=== PATIENT | female | born 1975 | race Caucasian/White ===

== ENCOUNTER → 2019-05-22 14:03 | Outpatient (BNVA) | payer OTHER, SELFPAY | PROVIDERS: Family Provider Nurse Practitioner; PCP Nurse Practitioner; Visit Provider Psychiatry & Neurology Neurology | DX: M79.601 Pain in right arm (principal); M79.602 Pain in left arm; M54.2 Cervicalgia | CPT/HCPCS: 95886; 95912 ==

== ENCOUNTER 2019-05-31 13:02 | Outpatient (CLI) | payer OTHER, SELFPAY ==
--- NOTE | 2019-05-31 13:06 | MR_ITS ---
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 Minimal LEFT convex curvature of the cervical spine. Posterior alignment is normal. Mild disc space narrowing and desiccation at C6-7 and C7-T1. Signal within the cord is normal. Craniocervical junction, C1 and C2 relationship, odontoid process and soft tissues are normal. C2-C3: Normal. C3-C4: Normal. C4-C5: Normal. C5-C6: Shallow central disc protrusion. Small osteophytes. No significant stenosis. CSF still surroun ds the cord. Less contact on the cord as compared to the prior CT from 04/08/2018. C6-C7: Annular disc bulging with facet and osteophyte disease. Shallow central protrusion is also pre sent. Effacement of ventral CSF very minimal encroachment upon the epidural space. Mild central and b ilateral foraminal stenosis. C7-T1: Normal. Paraspinal soft tissue are normal. MR/MR cervical spin wo con* [id number] IMPRESSION: 1. Moderate annular disc bulging and osteophytosis with central protrusion at C6-7. Resulting in mild central and bilateral foraminal stenosis. Similar to th e prior study. 2. Mild spondylosis at C5-6. Encroachment upon the ventral cord has slightly i mproved compared to 04/08/2018.
--- NOTE | 2019-05-31 13:07 | XR_ITS ---
WS: [id number] LATERAL CERVICAL SPINE: 3 view. Lateral radiographs are performed in upright neutral, flexion and extension to the patient's toleranc e. 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 Mild disc space narrowing at C6-7. Small to moderate o steophytes at C5, C6 and C7. No fracture. Less than 2 mm retrolisthesis of C3 and C6 with extension. No significant instability. Most significa nt degenerative changes at the C6-7 level. Similar to the prior study. XR/XR cervical spine fl/ex [id number] IMPRESSION: 1. No cervical instability. 2. Moderate spondylosis at C6-7 is stable.
== END 2019-05-31 13:03 | disposition home or self-care (01) ==
LOC: RADWPI 13:04
PROVIDERS: Family Provider Nurse Practitioner; PCP Nurse Practitioner; Visit Provider Licensed Practical Nurse
DX: M50.023 Cervical disc disorder at C6-C7 level with myelopathy (principal)
CPT/HCPCS: 72040; 72141

== ENCOUNTER → 2019-06-15 08:59 | Outpatient (BNVA) | payer OTHER, SELFPAY | PROVIDERS: Family Provider Nurse Practitioner; PCP Nurse Practitioner; Referring Provider Specialist; Visit Provider Specialist | DX: G43.711 Chronic migraine without aura, intractable, with status migrainosus (principal); M50.00 Cervical disc disorder with myelopathy, unspecified cervical region | CPT/HCPCS: 64615; 87077; 87086; 96372; J0585; J1885; J2405 ==

== ENCOUNTER → 2019-06-26 11:00 | Outpatient (BNVA) | payer OTHER, SELFPAY | PROVIDERS: Family Provider Nurse Practitioner; PCP Nurse Practitioner; Visit Provider Obstetrics & Gynecology Female Pelvic Medicine and Reconstructive Surgery | DX: N30.10 Interstitial cystitis (chronic) without hematuria (principal); R39.82 Chronic bladder pain | CPT/HCPCS: 87086 ==

== ENCOUNTER 2019-06-29 06:33 | Day surgery (SDC) | payer OTHER, SELFPAY ==
[2019-06-28 12:00] LABS: Basophils % 0.3 %; Eosinophils # 0.4 10^3/uL (0.0-0.8); Hemoglobin 14.1 g/dL (11.5-15.3); Lymphocytes # 2.5 10^3/uL (0.8-4.8); Lymphocytes % 38.8 %; Mean Corpuscular HGB Conc 32.8 g/dL (30.0-36.0); Mean Corpuscular Hemoglobin 29.1 pg (28.0-34.0); Mean Corpuscular Volume 88.8 fL (81-99); Monocytes # 0.4 10^3/uL (0.2-0.9); Monocytes % 5.8 %; Neutrophils # 3.2 10^3/uL (1.8-7.7); Neutrophils % 48.9 %; Nucleated Red Blood Cells % 0 %; Platelet Count 321 10^3/cmm (130-400); Red Blood Count 4.84 10^6/uL (4.1-5.3); Red Cell Distribution Width 12.1 % (12.1-15.1); White Blood Count 6.5 10^3/uL (4.0-10.0)
[2019-06-28 12:28] LABS: Anion Gap 13.6 (5-19); Blood Urea Nitrogen 7 mg/dL (6-20); Carbon Dioxide 26 mmol/L (22-29); Chloride 103 mmol/L (98-107); Glomerular Filtration Rate 90.9 mL/min (90-130); Glucose 112 mg/dL (65-115); Osmolality Calculated 283 mOsm/kg (285-295); Potassium 4.6 mmol/L (3.5-5.1); Sodium 138 mmol/L (136-145)
[2019-06-29] VITALS (10 sets, daily range): BP systolic 110–137; BP diastolic 63–86; PULSE 61–81; RESP 12–20; TEMP 36.2–36.9; O2SAT 94–100; BMI 37.8
[2019-06-29] MEDS: gabapentin 300 mg Capsule PO (06:58)
[2019-06-29] MEDS: CELEcoxib 200 mg Capsule 400 MG PO (06:59)
[2019-06-29] MEDS: scopolamine 1.5 Patch 1 PATCH TRANSDERMA (06:59)
--- NOTE | 2019-06-29 07:04 | W.PM.OPSUD ---
Surgery/Procedure H&P Update DATE OF PROCEDURE: June 29, 2019 DATE H&P PERFORMED: 06/15/19 H&P UPDATE INFORMATION: I have reviewed H&P completed within last 30 days PREOP DIAGNOSIS: Interstitial Cystitis PRIMARY INDICATION FOR PROCEDURE: bladder pain PLANNED PROCEDURE: Operation Date: 06/29/19 08:00 Proposed Procedures p Cystoscopy/Cystoscopic hydrodistension of bladder with possible biopsy [id number] N30.10 R39.82(Not Applicable) - DO elpidio Villarreal Bladder Instillation(Not Applicable) - Philippe Bright DO
[2019-06-29] MEDS: lactated ringers 1,000 ML 999 ML IV (07:38)
--- NOTE | 2019-06-29 08:57 | SUR.OPER ---
0850- bladder stone identified. Dr. Bright spoke with Dr. Soares, he is coming to assist with procedure. Patient family updated of patient's status.
--- NOTE | 2019-06-29 11:02 | P.OP_ITS ---
Operative Report Date of procedure: June 29, 2019 Pre-op Diagnosis: Interstitial Cystitis Pre-op Diagnosis: Refractory frequency urgency Chronic bladder pain Post-op diagnosis: same Post-op Diagnosis: Foreign body in bladder Post-op Findings: Procedure Done: Extent of surgery initial cystoscopy showed a large foreign body in the dome of the bladder recognized as a calcified stone.. To be associated with intravesicular suture. Pathology: other Pathology: Bladder stone sent for stone analysis Olericulture Professor: Co-surgeon: Dr. Mu Soares. Please see his dictation for his portion of the surgery Estimated blood loss (mL): 10 IV fluids (mL): 500 Urine output: Not measured Complications: No complications however the presence of bladder stone and foreign body in the bladder led to termination of the hydrodistention and cystos copy Findings: At the time of surgery plan initial observation inspection of the bladder there was a large bladder stone with suture incorporated in the dome of the bladder. End of the case the stone had been removed by Dr. Soares suture foreign body had been resected to the smallest possible amount Condition: stable Disposition: PACU Brief History: 44-year-old multiparous lady with past history of hysterectomy in the remote past with a years history of chronic bladder pain and irritative bladder symptoms undergoing hydrodistention cystoscopy for possible interstitial cystitis. Procedure: Patient was notified counseled received preoperative antibiotics she was taken to the operating room [facility]. In the operating room underwent general tracheal anesthesia was placed in Tai stirrups in the dorsolithotomy position. Examination under anesthesia was performed and unrevealing. The perineum vulva was then prepped and draped in usual manner timeout was performed. Cystoscopy was then performed using sterile water distention media 80 to 100 cm above the bladder 70 degrees cystoscope was placed and the bladder was inspected in its entirety both ureteral orifices were identified trigone was identified sidewalls of the bladder were unremarkable. In the dome of the bladder proximal 11:00 there was a large thumb sized bladder stone noted. There did appear to be a suture incorporating the stone. Once identifying the bladder stone the hydrodistention cystoscopy portion was terminated using grasping forceps with direct observation I did attempt to grasp the stone and remove it several pieces were removed still in her to reduce by about 50% in size however became apparent that this was something I was not going to be able to do safely. At that point time urology consultation was obtained Dr. Soares did present to the OR and then proceeded to take over the case and utilize laser modality to destroy the stone. After completion abdominal Dr. Soares's portion of the case patient was taken to the recovery room in good condition. He will go home today plan is to have indwelling Tenorio catheter for 5 to 7 days plan to see me back next Wednesday for catheter removal plan to follow-up with Dr. Soares in approximately 3 weeks for an office cystoscopy. I have discussed the findings with the patient's I have given him a picture of the stone have explained to him that due to the presence of the stone need to remove the stone hydrodistention could not be completed I do suspect that that removal of the stone is going to greatly in people and prove the pa tient's irritative bladder symptoms and bladder pain. There were no complications patient to discharge home from PACU.
[2019-07-02 23:15] LABS: Stone Source BLADDER
== END 2019-06-29 12:48 | disposition home or self-care (01) ==
PROVIDERS: Urology; Family Provider Nurse Practitioner; PCP Nurse Practitioner; Visit Provider Obstetrics & Gynecology Female Pelvic Medicine and Reconstructive Surgery
PROC: 0TJB8ZZ Inspection of Bladder, Via Natural or Artificial Opening Endoscopic (ICD-10-PCS; CPT 52000; principal; 2019-06-29 08:00)
DX: T19.1XXA Foreign body in bladder, initial encounter (principal); X58.XXXA Exposure to other specified factors, initial encounter; N30.10 Interstitial cystitis (chronic) without hematuria; Z87.891 Personal history of nicotine dependence; Z82.49 Family history of ischemic heart disease and other diseases of the circulatory system
CPT/HCPCS: 52318; 12345; 36415; 80048; 82365; 85025; 88300; 96365; J0131; J0690; J1100; J2001; J2405; J2704; J2710; J3010; J3490

== ENCOUNTER → 2019-07-19 12:55 | Outpatient (BNVA) | payer OTHER, SELFPAY | PROVIDERS: Family Provider Nurse Practitioner; PCP Nurse Practitioner; Visit Provider Urology | DX: N30.10 Interstitial cystitis (chronic) without hematuria (principal); T19.1XXA Foreign body in bladder, initial encounter; N21.0 Calculus in bladder; X58.XXXA Exposure to other specified factors, initial encounter | CPT/HCPCS: 81001 ==

== ENCOUNTER → 2019-10-05 11:05 | Outpatient (BNVA) | payer OTHER, SELFPAY | PROVIDERS: Family Provider Nurse Practitioner; PCP Nurse Practitioner; Visit Provider Specialist | DX: G43.711 Chronic migraine without aura, intractable, with status migrainosus (principal); Z87.891 Personal history of nicotine dependence | CPT/HCPCS: 64615; J0585 ==

== ENCOUNTER → 2019-10-10 10:32 | Outpatient (BNVA) | payer OTHER, SELFPAY | PROVIDERS: Family Provider Nurse Practitioner; PCP Nurse Practitioner; Visit Provider Urology | DX: N21.0 Calculus in bladder (principal); T19.1XXA Foreign body in bladder, initial encounter; X58.XXXA Exposure to other specified factors, initial encounter | CPT/HCPCS: 81001 ==

== ENCOUNTER → 2019-12-28 10:55 | Outpatient (BNVA) | payer OTHER, SELFPAY | PROVIDERS: Family Provider Nurse Practitioner; PCP Nurse Practitioner; Visit Provider Specialist | DX: G43.711 Chronic migraine without aura, intractable, with status migrainosus (principal); M50.020 Cervical disc disorder with myelopathy, mid-cervical region, unspecified level | CPT/HCPCS: 64615; 99212; J0585 ==

== ENCOUNTER → 2020-01-10 10:21 | Outpatient (BNVA) | payer OTHER, SELFPAY | PROVIDERS: Family Provider Nurse Practitioner; PCP Nurse Practitioner; Visit Provider Urology | DX: N21.0 Calculus in bladder (principal) | CPT/HCPCS: 81001 ==

== ENCOUNTER → 2020-05-30 10:46 | Outpatient (BNVA) | payer OTHER, SELFPAY | PROVIDERS: Family Provider Nurse Practitioner; PCP Nurse Practitioner; Visit Provider Nurse Practitioner | DX: E66.01 Morbid (severe) obesity due to excess calories (principal); K92.1 Melena; Z13.6 Encounter for screening for cardiovascular disorders; E07.9 Disorder of thyroid, unspecified | CPT/HCPCS: 80053; 80061; 84443; 85025 ==

== ENCOUNTER → 2020-06-14 13:18 | Outpatient (BNVA) | payer OTHER, SELFPAY | PROVIDERS: Family Provider Nurse Practitioner; PCP Nurse Practitioner; Visit Provider Surgery | DX: Z20.822 Contact with and (suspected) exposure to COVID-19 (principal) | CPT/HCPCS: 87635 ==

== ENCOUNTER 2020-06-19 08:04 | Day surgery (SDC) | payer OTHER, SELFPAY ==
[2020-06-19 08:15] VITALS: BP 132/70; PULSE 84; RESP 16; TEMP 36.3; O2SAT 96
--- NOTE | 2020-06-19 08:18 | W.PM.OPSUD ---
Surgery/Procedure H&P Update DATE OF PROCEDURE: June 19, 2020 DATE H&P PERFORMED: 06/15/19 H&P UPDATE INFORMATION: I have reviewed H&P completed within last 30 days, I have examined patient prior to procedure and No changes to prior documentation PREOP DIAGNOSIS: panendoscopy PLANNED PROCEDURE: Operation Date: 06/19/20 09:10 Proposed Procedures p EGD [id number] R10.13 K92.1(Not Applicable) - Skyler Ontiveros MD s Colonoscopy(Not Applicable) - Skyler Ontiveros MD
[2020-06-19] MEDS: sodium chloride 0.9% 1,000 ML 30 ML IV (08:30)
--- NOTE | 2020-06-19 08:35 | ANES.PREANE2 ---
Pre-Anesthetic Assessment Pre-Anesthetic Assessment: Height/Weight: Height 1.6 m Weight 99.79 kg Temp Pulse Resp BP Pulse Ox 97.3 F L 84 16 132/70 96 06/19/20 08:15 06/19/20 08:15 06/19/20 08:15 06/19/20 08:15 06/19/20 08:15 Preop Diagnosis: panendoscopy Proposed Procedure: Operation Date: 06/19/20 09:10 Proposed Procedures p EGD 31510 95327 R10.13 K92.1(Not Applicable) - Skyler Ontiveros MD s Colonoscopy(Not Applicable) - Skyler Ontiveros MD Familial anesthetic complications: None Was Beta Marleni taken within 24 hours: N/A Last intake: Intake Last Liquid Date 06/18/20 Last Liquid Time 21:00 Last Solid Date 06/16/20 Last Solid Time 21:00 Social: Social History: No alcohol and No tobacco Comment: former smoker Exam: Pre-Anes Outpt Exam: alert, oriented x 3, clear to auscultation bilaterally and regular rate & rhythm Airway: Cervical ROM: WNL MP: 4 Dentition: Full GI: GI: GERD Metabolic: Metabolic: Morbid obesity Anesthetic Plan: ASA status: 2 Anesthesia: MAC Risk of > 500 ml blood loss (7ml/kg in children): No Meds/Allergies Current Medications: Current Medications Generic Name Dose Route Start Last Admin Trade Name Freq PRN Reason Stop Dose Admin Sodium Chloride 1,000 mls @ 30 ml s/hr 06/19/20 08:15 06/19/20 08:30 Sodium Chloride 0.9% IV 06/20/20 08:14 30 mls/hr .Q24H DARCI Administration PFSH Anesthesia PFSH: Medical History (Updated 06/10/20 @ 11:10 by Skyler Ontiveros MD) Bladder stone Breast cancer Cervical disc disorder with myelopathy of mid-cervical region Spondylolisthesis of cervical region Surgical History (Updated 06/10/20 @ 11:10 by Skyler Ontiveros MD) History of hysterectomy History of incisional hernia repair History of left oophorectomy History of mastectomy With reconstruction S/P small bowel resection Family History Other Cancer Diabetes Social History Smoking and tobacco status: former smoker Second hand smoke exposure: No Smoking risk assessment/counseling performed?: No Alcohol intake: never Desire information about alcohol rehabilitation?: No Counseling given: No Desire information about substance/drug rehabilitation?: No Counseling given: No Adopted: No Caregiver/support person: No Lives independently: Yes Household members: spouse Marital status: Number of children: 3 service: No Current occupational status: employed Current occupation: [employer] History of recent travel: No Current gender identity: Female Data Anesthesia Cardiac Studies: No Data to Display
[2020-06-19 10:21] VITALS: BP 104/67; PULSE 84; RESP 16; TEMP 36.1; O2SAT 94
[2020-06-19 10:57] VITALS: BP 105/78; PULSE 76; RESP 18; O2SAT 98
--- NOTE | 2020-06-19 19:59 | ANE.PACU2 ---
Inpatient post-anesthesia follow up: Airway intact: Yes Vital signs: Temperature 97 F Pulse Rate 76 Respiratory Rate 18 Blood Pressure 105/78 Pulse Oximetry 98 Oxygen Delivery Me thod Room Air Oxygen Flow Rate 2 Fraction of Inspir ed Oxygen Hydration adequate: Yes Nausea and vomiting: No Pain level: 1 Mental status: Baseline
== END 2020-06-19 11:25 | disposition home or self-care (01) ==
PROVIDERS: PCP Nurse Practitioner; Visit Provider Surgery
PROC: 0DJ08ZZ Inspection of Upper Intestinal Tract, Via Natural or Artificial Opening Endoscopic (ICD-10-PCS; CPT 43235; principal; 2020-06-19 09:10)
PROC: 0DJD8ZZ Inspection of Lower Intestinal Tract, Via Natural or Artificial Opening Endoscopic (ICD-10-PCS; CPT 45378; 2020-06-19 09:10)
DX: R10.13 Epigastric pain (principal); K92.1 Melena; K20.90 Esophagitis, unspecified without bleeding; K29.70 Gastritis, unspecified, without bleeding; D12.5 Benign neoplasm of sigmoid colon; K64.8 Other hemorrhoids; K21.9 Gastro-esophageal reflux disease without esophagitis; E66.01 Morbid (severe) obesity due to excess calories; Z68.39 Body mass index [BMI] 39.0-39.9, adult; Z85.3 Personal history of malignant neoplasm of breast; Z87.891 Personal history of nicotine dependence
CPT/HCPCS: 43239; 45385; 88305; J2704; J3490; J7030

== ENCOUNTER → 2020-07-09 09:20 | Outpatient (BNVA) | payer OTHER, SELFPAY | PROVIDERS: PCP Nurse Practitioner; Visit Provider Urology | DX: R39.82 Chronic bladder pain (principal); N21.0 Calculus in bladder; T19.1XXD Foreign body in bladder, subsequent encounter | CPT/HCPCS: 81003 ==

== ENCOUNTER → 2020-10-08 11:18 | Outpatient (BNVA) | payer OTHER, SELFPAY | PROVIDERS: PCP Nurse Practitioner; Visit Provider Urology | DX: N21.0 Calculus in bladder (principal); T19.1XXD Foreign body in bladder, subsequent encounter; Z20.822 Contact with and (suspected) exposure to COVID-19 | CPT/HCPCS: 81003; 87635 ==

== ENCOUNTER 2020-10-14 14:13 | Day surgery (SDC) | payer OTHER, SELFPAY ==
[2020-10-11 11:09] VITALS: BMI 38.9
[2020-10-14] VITALS (10 sets, daily range): BP systolic 115–129; BP diastolic 78–87; PULSE 66–85; RESP 12–27; TEMP 36.1–36.6; O2SAT 92–97
[2020-10-14] MEDS: sodium chloride 0.9% 1,000 ML 30 ML IV (14:51)
--- NOTE | 2020-10-14 15:26 | ANES.PREANE2 ---
Pre-Anesthetic Assessment Pre-Anesthetic Assessment: Height/Weight: Height 1.6 m Weight 99.79 kg Temp Pulse Resp BP Pulse Ox 97.4 F L 85 18 124/78 97 10/14/20 14:34 10/14/20 14:34 10/14/20 14:34 10/14/20 14:34 10/14/20 14:34 Preop Diagnosis: Cystolithiasis, foreign body bladder Proposed Procedure: Operation Date: 10/14/20 15:35 Proposed Procedures p Cystolitholapaxy 42135 59028 T19.1XXA(Not Applicable) - Mu Soares MD s Cystoscopy(Not Applicable) - Mu Soares MD s Foreign Body Removal(Not Applicable) - Mu Soares MD Was Beta Marleni taken within 24 hours: N/A Was Clonidine taken within 24 hours: N/A Last intake: Intake Last Liquid Date 10/14/20 Last Liquid Time 08:30 Last Solid Date 10/13/20 Last Solid Time 19:00 Social: Social History: No alcohol and No tobacco Exam: Pre-Anes Outpt Exam: alert, oriented x 3, clear to auscultation bilaterally and regular rate & rhythm Airway: Submandibular: WNL Cervical ROM: WNL MP: 2 Dentition: Full GI: GI: GERD Metabolic: Metabolic: Morbid obesity Musc/skel: Musc/skel: Lower Back Pain Comments: Chronic pain Neuropsych: Neuropsych: HAIRSTON Anesthetic Plan: ASA status: 3 Anesthesia: General Risk of > 500 ml blood loss (7ml/kg in children): No Meds/Allergies Current Medications: Current Medications Generic Name Dose Route Start Last Admin Trade Name Freq PRN Reason Stop Dose Admin Sodium Chloride 1,000 mls @ 30 ml s/hr 10/14/20 14:30 10/14/20 14:51 Sodium Chloride 0.9% IV 10/15/20 14:29 30 mls/hr .Q24H DARCI Administration PFSH Anesthesia PFSH: Medical History Bladder stone Breast cancer Cervical disc disorder with myelopathy of mid-cervical region Spondylolisthesis of cervical region Surgical History H/O esophagogastroduodenoscopy (06/19/20) History of colonoscopy with polypectomy (06/19/20) History of hysterectomy History of incisional hernia repair History of left oophorectomy History of mastectomy With reconstruction S/P small bowel resection Status post insertion of spinal cord stimulator Family History Other Cancer Diabetes Social History Smoking and tobacco status: former smoker Second hand smoke exposure: No Smoking risk assessment/counseling performed?: No Alcohol intake: never Desire information about alcohol rehabilitation?: No Counseling given: No Desire information about substance/drug rehabilitation?: No Counseling given: No Adopted: No Caregiver/support person: No Lives independently: Yes Household members: spouse Marital status: Number of children: 3 service: No Current occupational status: employed Current occupation: [employer] History of recent travel: No Current gender identity: Female Data Anesthesia Cardiac Studies: No Data to Display
--- NOTE | 2020-10-14 15:46 | P.HPUD_ITS ---
Surgery/Procedure H&P Update DATE OF PROCEDURE: October 14, 2020 DATE H&P PERFORMED: 10/08/20 H&P UPDATE INFORMATION: I have reviewed H&P completed within last 30 days, I have examined patient prior to procedure, No changes to prior documentation and H&P is in [facility] [place] EMR on date indicated PREOP DIAGNOSIS: Cystolithiasis, foreign body bladder PLANNED PROCEDURE: Operation Date: 10/14/20 15:35 Proposed Procedures p Cystolitholapaxy 48234 33071 T19.1XXA(Not Applicable) - Mu Soares MD s Cystoscopy(Not Applicable) - Mu Soares MD s Foreign Body Removal(Not Applicable) - Mu Soares MD
--- NOTE | 2020-10-14 15:47 | P.OP_ITS ---
Operative Report Date of procedure: October 14, 2020 Pre-op Diagnosis: Cystolithiasis, foreign body bladder Post-op diagnosis: same Procedure Done: 1. Cystolitholapaxy <2.5 cm 2. Removal of foreign body Specimens removed/disposition: Bladder stone on foreign body Pathology: none sent (Bladder stone fragments) Anesthesia: General Estimated blood loss: Minimal Urine output: Not measured Complications: None Findings: Calcification on stitch in expected position. Brief History: Kala is a very pleasant 45-year-old white female with a history of stitch erosion externally to the bladder into the bladder with calcification formation. She has had recurrent calcifications formed. Prior attempts to remove the stitch were unsuccessful. She has a severely adhesed pelvis based on multiple surgeries and surgical history and we have elected to try more conservative avenues and then consider open surgery given her likelihood of other organ damage. Admitted now for cystolitholapaxy and attempt at foreign body removal. Procedure: After routine preoperative evaluation examination and obtaining of informed consent she was taken to the operating suite on 10/14/2020 where general anesthesia was administered without difficulty after appropriate timeout was performed, SCDs confirmed to be functioning, preoperative antibiotics administered, beta-mario alberto protocol confirmed. Prepped and draped in usual sterile fashion in dorsolithotomy position paying careful attention to avoiding pressure points. 21 [place] cystoscope with 30 degree lens was introduced into urethra meatus and advanced into the bladder under videoscopy. The bladder was examined both 30 and 70 degree lenses. Calcification near the dome was identified as seen in the clinic. There was evidence of the stitch protruding with the stone A 200 ?m thulium superpulse laser fiber was utilized to fragment the stone. As fragmentation progressed the fiber of the stitch was also seen to be breaking apart. Fragmentation continued to below the mucosal surface where no residual stone or stitch could be identified. Grasping forceps, cold cup biopsy forceps were used to probe and confirm no residual stitch. The endoscopic scissors were not needed. On final inspection the area of resection/laser lithotripsy was contracted submucosally. There was no bleeding. The fragments which were essentially sand were flushed free from the bladder. No specimen was sent. She tolerated procedure well without complication. It was decided to not leave the catheter in the completion procedure. She will be required to void before discharge PLANS: 1. Anticipate discharge from outpatient surgery 2. Follow-up in 6 months with cystoscopy 3. Call for any concerns or questions postoperatively.
[2020-10-14] MEDS: fentaNYL 50 mcg/mL INJ 2mL IVP ×2 (17:26→17:31)
--- NOTE | 2020-10-14 17:27 | ANE.PACU2 ---
Inpatient post-anesthesia follow up: Airway intact: Yes Vital signs: Temperature 97.4 F Pulse Rate 85 Respiratory Rate 18 Blood Pressure 124/78 Pulse Oximetry 97 Oxygen Delivery Me thod Room Air Oxygen Flow Rate Fraction of Inspir ed Oxygen Hydration adequate: Yes Nausea and vomiting: No Pain level: 2 Mental status: Baseline
[2020-10-14] MEDS: acetaminophen 325 mg Tablet 650 MG PO (18:36)
[2020-10-14] MEDS: phenazopyridine 100 mg Tablet 200 MG PO (18:38)
== END 2020-10-14 18:50 | disposition home or self-care (01) ==
PROVIDERS: PCP Nurse Practitioner; Visit Provider Urology
PROC: 0TCB8ZZ Extirpation of Matter from Bladder, Via Natural or Artificial Opening Endoscopic (ICD-10-PCS; CPT 52317; principal; 2020-10-14 15:25)
PROC: 0TJB8ZZ Inspection of Bladder, Via Natural or Artificial Opening Endoscopic (ICD-10-PCS; CPT 52000; 2020-10-14 15:25)
PROC: (CPT 52317; 2020-10-14 15:25)
DX: N21.0 Calculus in bladder (principal); T19.1XXA Foreign body in bladder, initial encounter; X58.XXXA Exposure to other specified factors, initial encounter; K21.9 Gastro-esophageal reflux disease without esophagitis; E66.01 Morbid (severe) obesity due to excess calories; Z68.39 Body mass index [BMI] 39.0-39.9, adult; Z85.3 Personal history of malignant neoplasm of breast; Z87.891 Personal history of nicotine dependence
CPT/HCPCS: 52317; J1100; J2250; J2405; J2704; J2710; J3010; J3490; J7030

== ENCOUNTER → 2021-04-02 11:20 | Outpatient (BNVA) | payer OTHER, SELFPAY | PROVIDERS: PCP Nurse Practitioner; Visit Provider Nurse Practitioner | DX: E66.9 Obesity, unspecified (principal); M50.00 Cervical disc disorder with myelopathy, unspecified cervical region | CPT/HCPCS: 80053; 80061 ==

== ENCOUNTER → 2021-04-15 10:30 | Outpatient (BNVA) | payer OTHER, SELFPAY | PROVIDERS: PCP Nurse Practitioner; Visit Provider Urology | DX: N21.0 Calculus in bladder (principal) | CPT/HCPCS: 81003 ==

== ENCOUNTER → 2021-11-04 08:24 | Outpatient (BNVA) | payer OTHER, SELFPAY | PROVIDERS: PCP Nurse Practitioner; Visit Provider Nurse Practitioner | DX: E78.2 Mixed hyperlipidemia (principal) | CPT/HCPCS: 80053; 80061; 84443 ==

== ENCOUNTER → 2022-01-29 10:20 | Outpatient (BNVA) | payer OTHER, SELFPAY | PROVIDERS: PCP Nurse Practitioner; Visit Provider Urology | DX: N21.0 Calculus in bladder (principal); T19.1XXD Foreign body in bladder, subsequent encounter | CPT/HCPCS: 81003 ==

== ENCOUNTER → 2022-02-03 10:18 | Outpatient (BNVA) | payer OTHER, SELFPAY | PROVIDERS: PCP Nurse Practitioner; Visit Provider Nurse Practitioner | DX: G43.711 Chronic migraine without aura, intractable, with status migrainosus (principal); E66.9 Obesity, unspecified; Z12.39 Encounter for other screening for malignant neoplasm of breast; Z98.82 Breast implant status | CPT/HCPCS: 80053; 85025 ==

== ENCOUNTER 2022-02-17 10:07 | Outpatient (CLI) | payer OTHER, SELFPAY ==
--- NOTE | 2022-02-17 11:23 | US_ITS ---
WS: [id number] ULTRASOUND RIGHT BREAST HISTORY: PAIN/ HX OF BILAT MASTECTOMIES, RIGHT PAIN AXILLARY/ COMPARISON: None available. TECHNIQUE: 2-D and Doppler. Ultrasound is directed towards the RIGHT axilla and chest wall at the site of pain directed by the pa tient. Normal appearance of the soft tissues. Patient is status post bilateral breast implants with r econstruction. There are no suspicious masses or lymph nodes identified. US/US breast RT limited* [id number] IMPRESSION: BI-RADS: 2-Benign FOLLOW-UP: See Report No additional imaging follow-up necessary at this time as no abnormality is tomy ntified.
== END 2022-02-17 10:08 | disposition home or self-care (01) ==
LOC: RAD 10:08
PROVIDERS: PCP Nurse Practitioner; Visit Provider Nurse Practitioner
DX: N64.4 Mastodynia (principal); Z90.13 Acquired absence of bilateral breasts and nipples
CPT/HCPCS: 76642

== ENCOUNTER → 2022-11-25 09:03 | Outpatient (BNVA) | payer OTHER, SELFPAY | PROVIDERS: PCP Nurse Practitioner; Visit Provider Nurse Practitioner | DX: M54.50 Low back pain, unspecified (principal); M79.604 Pain in right leg | CPT/HCPCS: 72100; 73502 ==

== ENCOUNTER 2023-01-01 08:57 | Emergency (ER) | payer OTHER, SELFPAY ==
[2023-01-01] VITALS (68 sets, daily range): BP systolic 115–145; BP diastolic 73–97; PULSE 66–88; RESP 13–34; TEMP 36.6; O2SAT 91–100; BMI 31.8
--- NOTE | 2023-01-01 09:52 | CT_ITS ---
WS: [id number] CT ABDOMEN AND PELVIS NONCONTRAST HISTORY: Abdominal pain TECHNIQUE: Imaging performed through the abdomen and pelvis. Coronal and sagittal reformats are submi tted. All CT scans at [facility] use at least one of these dose optimization techniques: auto mated exposure control; mA and/or kV adjustment per patient size (includes targeted exams where dose is matched to clinical indication); or iterative reconstruction. DLP: 855.91 mGy.cm COMPARISON: 01/22/2017 Lower thorax: Lung bases are clear. Visualized heart is normal. No hiatal hernia. Bilateral breast im plants. Liver: Normal size liver. No mass or bile duct dilatation. Gallbladder: Normal gallbladder. No pericholecystic fluid or cholelithiasis. No gallbladder wall thic kening. Pancreas: Normal size and attenuation. Normal pancreatic duct. No pancreatitis or mass. Spleen: Normal. Adrenal glands: Normal. No mass. Right kidney: Normal size kidney with no mass or hydronephrosis. Left kidney: Normal size kidney with no mass or hydronephrosis. Aorta: Mild atherosclerosis abdominal aorta with no aneurysm. No free fluid, intraperitoneal air or significant lymphadenopathy. GI tract: Nondistended stomach. No small bowel obstruction. The appendix is not definitely visualized . The appendix is very small on a prior study. There is marked air and fecal material throughout the entire colon. There is no wall thickening. Greatest diameter of the loop of colon measure up to 6.7 c m. There is inspissated fecal material. Severe constipation. No pericolonic inflammation. Abdominal wall: Prior mesh placement ventral abdominal wall below the umbilicus. Pelvis: Prior hysterectomy. No free fluid or adenopathy. Osseous structures: Unremarkable. Prior dorsal column spinal stimulator. IMPRESSION: 1. Severe diffuse chronic constipation and obstipation. 2. No acute pericolonic inflammation. 3. No renal obstruction.
[2023-01-01 09:55] LABS: Basophils % 0.3 %; Eosinophils % 0.2 %; Hematocrit 44.5 % (36-47); Lymphocytes # 1.2 10^3/uL (0.8-4.8); Lymphocytes % 10.2 %; Mean Corpuscular Hemoglobin 29.6 pg (27-33); Mean Corpuscular Volume 89.7 fl (85-98); Mean Platelet Volume 10.7 fL (7.4-10.4); Monocytes # 0.4 10^3/uL (0.2-0.9); Monocytes % 3.1 %; Neutrophils # 9.69 10^3/uL (1.8-7.7); Neutrophils % 85.9 %; Nucleated Red Blood Cells % 0 %; Platelet Count 304 10^3/cmm (157-399); Red Blood Count 4.96 10^6/uL (3.85-5.65); Red Cell Distribution Width 12.4 % (12.1-15.1); White Blood Count 11.27 10^3/uL (3.29-11.43)
[2023-01-01] MEDS: morphine 4 mg/mL SDV 1 mL 6 MG IVP (10:02)
[2023-01-01] MEDS: ondansetron 2 mg/ML SDV 2 mL 4 MG IVP ×2 (10:02→14:57)
[2023-01-01] MEDS: sodium chloride 0.9% 1,000 ML 999 ML IV (10:02)
--- NOTE | 2023-01-01 10:11 | W.ED.ABDPA2 ---
HPI - Abdominal Pain General: Chief Complaint: Abdominal Pain Stated Complaint: abd pain, N/V, Fever Time Seen by Provider: 01/01/23 09:02 Source: patient Mode of arrival: ambulatory History of Present Illness: 47-year-old female presents to the emergency room with complaints of abdominal pain nausea vomiting and fever. Pain localizes to the right upper quadrant has been present all night she has rather severe pain at this time she also has a bit of a headache. She denies any hematochezia melena hematemesis or coffee-ground emesis. She did have bilious vomit while I was examining the patient. No dysuria urgency or frequency flank pain no hematuria. MD elicited complaint: abdominal pain Onset (ago): minute(s) Location: RUQ Severity: moderate Quality: sharp Radiation: none Migration to: no migration Exacerbating factors: nothing Relieving factors: nothing Associated Symptoms: Reports bloating, GI cramping, nausea and poor appetite; Denies anorexia, belching, change in bowel habits, change in stool character, chills, coffee ground emesis, constipation, diarrhea, dyspepsia, dysuria, excessive flatus, fever(s), heartburn, hematochezia, hematuria, hematemesis, fecal incontinence, loose stools, melena, syncope and vomiting Review of Systems Const: Denies: fever(s) or chills Card: Denies: syncope GI: Reports: nausea, bloating and GI cramping; Denies: vomiting, hematemesis, coffee ground emesis, heartburn, diarrhea, constipation, belching, excessive flatus, fecal incontinence, change in bowel habits, change in stool character, hematochezia or melena : Denies: dysuria or hematuria PFSH ED PFSH: Medical History Bladder stone Breast cancer Cervical disc disorder with myelopathy of mid-cervical region Obesity (BMI 30.0-34.9) Saline breast implant in situ Spondylolisthesis of cervical region Surgical History H/O esophagogastroduodenoscopy (06/19/20) History of colonoscopy with polypectomy (06/19/20) History of hysterectomy History of incisional hernia repair History of left oophorectomy History of mastectomy With reconstruction S/P small bowel resection Status post insertion of spinal cord stimulator Family History Other Cancer Diabetes Social History Smoking and tobacco status: former smoker Second hand smoke exposure: No Smoking risk assessment/counseling performed?: No Alcohol intake: never Desire information about alcohol rehabilitation?: No Counseling given: No Substance/Drug Use: never Desire information about substance/drug rehabilitation?: No Counseling given: No Adopted: No Caregiver/support person: No Lives independently: Yes Household members: spouse Marital status: Number of children: 3 service: No Current occupational status: employed Current occupation: [employer] Do you think of yourself as: Straight/Heterosexual Current gender identity: Female Physical Exam Const: GENERAL APPEARANCE: cooperative and comfortable ORIENTATION/CONSCIOUSNESS: Yes awake, Yes oriented to person, Yes oriented to place and Yes oriented to time HENMT: COMMON NORMALS: normocephalic, atraumatic and hearing grossly normal bilaterally HEAD & SCALP: normocephalic and atraumatic Resp: COMMON NORMALS: normal respiratory effort, No retractions, No use of accessory muscles and clear to auscultation bilaterally AUSCULTATION: clear to auscultation bilaterally Cardio: COMMON NORMALS: regular rate, regular rhythm and No murmurs present (Cardio) RATE: regular rate RHYTHM: regular rhythm GI: COMMON NORMALS: No hepatosplenomegaly present AUSCULTATION: Yes normoactive bowel sounds PALPATION: Yes Tenderness to palpation present (GI), No Guarding due to palpation present (GI) and Yes No hepatosplenomegaly present Extremity: COMMON NORMALS: normal to inspection, capillary refill normal, no clubbing, cyanosis or edema, no calf tenderness and no pedal edema Neuro: SENSORIUM/ORIENTATION: Yes oriented to person, Yes oriented to place and Yes oriented to time Skin: COMMON NORMALS: no rashes or lesions noted GENERAL SKIN EXAM: no rashes or lesions noted Course Vital Signs: Vital signs: Vital Signs Temperature 97.8 F 01/01/23 09:40 Pulse Rate 75 01/01/23 16:00 Respiratory Rate 20 H 01/01/23 15:50 Blood Pressure 139/74 01/01/23 16:00 Pulse Oximetry 98 09/01/23 16:00 Oxygen Delivery Me thod Room Air 01/01/23 09:40 MDM - Abdominal Pain Medical Decision Making Significant constipation when she has not had in the past. She has a obstipation/pseudoobstruction. She not responded well to the enemas we have applied. She only had small amount of stool. She still has significant abdominal pain discomfort and nausea. We will admit the patient to hospitalist service consult surgery. She did have a colonoscopy she reports about 2 years ago that was unremarkable. Differential Diagnosis Likely abdominal pain, acute appendicitis, calculus of kidney, constipation, diverticulitis, gastroenteritis and small bowel obstruction Medical Records I reviewed the patient's medical records. Lab Data I reviewed the patient's lab results. 01/01/23 09:46 01/01/23 09:46 Labs/Radiology: Laboratory Results WBC 11.27 10^3/uL (3.29-11.43) 01/01/23 09:46 RBC 4.96 10^6/uL (3.85-5.65) 01/01/23 09:46 Hgb 14.70 g/dL (11.27-16.99) 01/01/23 09:46 Hct 44.5 % (36-47) 01/01/23 09:46 MCV 89.7 fl (85-98) 01/01/23 09:46 MCH 29.6 pg (27-33) 01/01/23 09:46 MCHC 33.0 g/dL (30-55) 01/01/23 09:46 RDW 12.4 % (12.1-15.1) 01/01/23 09:46 Plt Count 304 10^3/cmm (157-399) 01/01/23 09:46 MPV 10.7 fL (7.4-10.4) H 01/01/23 09:46 Neut % (Auto) 85.9 % 01/01/23 09:46 Lymph % (Auto) 10.2 % 01/01/23 09:46 [place] % (Auto) 3.1 % 01/01/23 09:46 Eos % (Auto) 0.2 % 01/01/23 09:46 Baso % (Auto) 0.3 % 01/01/23 09:46 Neut # (Auto) 9.69 10^3/uL (1.8-7.7) H 01/01/23 09:46 Lymph # (Auto) 1.2 10^3/uL (0.8-4.8) 01/01/23 09:46 [place] # (Auto) 0.4 10^3/uL (0.2-0.9) 01/01/23 09:46 Eos # (Auto) 0.0 10^3/uL (0.0-0.8) 01/01/23 09:46 Baso # (Auto) 0.0 10^3/uL (0.0-0.1) 01/01/23 09:46 Nucleated RBC % (auto) 0 % 01/01/23 09:46 Nucleated RBCs # 0.0 /100WBC 01/01/23 09:46 Sodium 140 mmol/L (136-145) 01/01/23 09:46 Potassium 4.8 mmol/L (3.5-5.1) 01/01/23 09:46 Chloride 104 mmol/L (98-107) 01/01/23 09:46 Carbon Dioxide 25 mmol/L (22-29) 01/01/23 09:46 Anion Gap 15.8 (5-19) 01/01/23 09:46 BUN 15 mg/dL (6-20) 01/01/23 09:46 Creatinine 0.8 mg/dL (0.5-0.9) 01/01/23 09:46 GFR Calculation 76.9 mL/min (90-130) L 01/01/23 09:46 Glucose 123 mg/dL (65-115) H 01/01/23 09:46 Calculated Osmolality 292 mOsm/kg (285-295) 01/01/23 09:46 Calcium 9.8 mg/dL (8.5-10.5) 01/01/23 09:46 Total Bilirubin 0.4 mg/dL (0.15-1.2) 01/01/23 09:46 AST 21 U/L (0-32) 01/01/23 09:46 ALT 25 U/L (0-33) 01/01/23 09:46 Alkaline Phosphatase 74 U/L (35-105) 01/01/23 09:46 Total Protein 7.4 g/dL (6.6-8.7) 01/01/23 09:46 Albumin 4.6 g/dL (3.5-5.2) 01/01/23 09:46 Globulin 2.8 g/dL (1.3-4.6) 01/01/23 09:46 Lipase 43 U/L (13-60) 01/01/23 09:46 Urine Color Brown (Yellow) A 01/01/23 11:06 Urine Appearance Clear (CLEAR) 01/01/23 11:06 Urine pH 6 (5-7) 01/01/23 11:06 Ur Specific [place] 1.020 (1.005-1.030) 01/01/23 11:06 Urine Protein Neg (Negative) 01/01/23 11:06 Urine Glucose (UA) Norm (Normal) 01/01/23 11:06 Urine Ketones 1+ (Negative) H 01/01/23 11:06 Urine Blood Neg (Negative) 01/01/23 11:06 Urine Nitrate Negative (Negative) 01/01/23 11:06 Urine Bilirubin 1+ (Negative) H 01/01/23 11:06 Urine Urobilinogen 1 mg/dL (Negative) H 01/01/23 11:06 Ur Leukocyte Esterase Negative (Negative) 01/01/23 11:06 Discharge Plan Discharge Condition: Stable Prescriptions: No Action Qulipta 60 mg tablet 60 mg PO DAILY Qty: 90 0RF (DME) pen needle, diabetic 33 gauge x 5/32 needle See Rx Instructions .ROUTE .MEDSUPPLY Qty: 100 5RF Rx Instructions: 1 time day Victoza 3-Michelet 0.6 mg/0.1 mL (18 mg/3 mL) pen injector 1.8 mg SUBCUT DAILY Qty: 9 0RF ondansetron HCl 4 mg tablet 4 mg PO Q8H PRN (Reason: nausea and vomiting) Qty: 90 0RF pantoprazole [Protonix] 40 mg tablet,delayed release (DR/EC) 40 mg PO DAILY 90 Days Qty: 90 0RF tizanidine [Zanaflex] 4 mg tablet 4 mg PO BID PRN (Reason: muscle spasticity) Qty: 180 0RF Contrave 8-90 mg tablet extended release 2 tab PO Q12H Qty: 120 0RF Multi-Vitamin Tablet 1 tab PO DAILY Referrals: Kameron Gallagher, ARCHITECTURAL PROJECT MANAGER-C [Primary Care Provider] - Coding Level of Care Code ED Curriculum And Assessment Director for Angeli Feliciano
[2023-01-01 10:14] LABS: Alanine Aminotransferase 25 U/L (0-33); Albumin Level 4.6 g/dL (3.5-5.2); Alkaline Phosphatase 74 U/L (35-105); Anion Gap 15.8 (5-19); Aspartate Amino Transferase 21 U/L (0-32); Blood Urea Nitrogen 15 mg/dL (6-20); Calcium 9.8 mg/dL (8.5-10.5); Carbon Dioxide 25 mmol/L (22-29); Chloride 104 mmol/L (98-107); Globulin 2.8 g/dL (1.3-4.6); Glomerular Filtration Rate 76.9 mL/min (90-130); Glucose 123 mg/dL (65-115); Lipase 43 U/L (13-60); Osmolality Calculated 292 mOsm/kg (285-295); Potassium 4.8 mmol/L (3.5-5.1); Sodium 140 mmol/L (136-145); Total Bilirubin 0.4 mg/dL (0.15-1.2); Total Protein 7.4 g/dL (6.6-8.7)
[2023-01-01 11:22] LABS: Add Urine Microscopic? NO; Charge for UA Resulting for Rev
[2023-01-01 11:28] LABS: Bilirubin Urine 1+ (Negative); Blood Urine Neg (Negative); Glucose Urine UA Norm (Normal); Ketones Urine 1+ (Negative); Leukocyte Esterase Urine Negative (Negative); Nitrate Urine Negative (Negative); Protein Urine Neg (Negative); Urine Appearance Clear (CLEAR); Urine Color Brown (Yellow); Urobilinogen Urine 1 mg/dL (Negative); pH Urine 6 (5-7)
--- NOTE | 2023-01-01 17:10 | XRR_ITS ---
PROCEDURE INFORMATION: Exam: XR Complete Acute Abdomen Series Including Chest Exam date and time: 01/01/2023 5:24 PM Age: 47 years old Clinical indication: Abdominal pain; Generalized; Additional info: Abd pain TECHNIQUE: Imaging protocol: Radiologic exam. Complete acute abdomen series, including 2 or more views of the abdomen and a single view chest. COMPARISON: CT abdomen pelvis wo con [id number] 01/01/2023 10:08 AM FINDINGS: Tubes, catheters and devices: Neurostimulator hardware is noted. Leads probably terminate in the cervical spine. Another tubular structure is seen traversing the midline thorax. Its exact location is uncertain. Lungs: Normal. No consolidation. Pleural spaces: Normal. No pleural effusions. No pneumothorax. Heart/Mediastinum: Normal. No cardiomegaly. Gastrointestinal tract: Gassy mildly distended transverse colon. Intraperitoneal space: Normal. No free air. Bones/joints: No acute findings Soft tissues: Normal. XR/XR acute abdomen series [id number] IMPRESSION: Gassy colon.
== END 2023-01-01 18:33 | disposition home or self-care (01) ==
LOC: ER 15:03 → MEDSURG 17:50
PROVIDERS: Physician Assistant; Emergency Provider Family Medicine; PCP Nurse Practitioner
DX: K59.00 Constipation, unspecified (principal); Z85.3 Personal history of malignant neoplasm of breast; Z87.891 Personal history of nicotine dependence
CPT/HCPCS: 36415; 74022; 74176; 80053; 81003; 83690; 85025; 96361; 96374; 96375; 96376; 99285; J2270; J2405; J7030

== ENCOUNTER 2023-01-02 16:23 | Inpatient (IN) | payer OTHER, SELFPAY ==
[2023-01-02] VITALS (10 sets, daily range): BP systolic 120–152; BP diastolic 76–98; PULSE 75–122; RESP 16–17; TEMP 36.2–36.6; O2SAT 95–98; BMI 31.8
--- NOTE | 2023-01-02 18:26 | CTR_ITS ---
PROCEDURE INFORMATION: Exam: CT Abdomen And Pelvis With Contrast Exam date and time: 01/02/2023 6:52 PM Age: 47 years old Clinical indication: Nausea and vomiting; Abdominal pain; Generalized; Prior surgery; Surgery date: 6+ months; Surgery type: Mastectomy/breast aug. Stimulator. Bowel resection. Hysterectomy. Hernia mesh. Patient HX: Persistent abd pain with n/v. Constipation/obstipation noted on CT abd/pel from 01/01/2023. ; Additional info: Increased abd pain TECHNIQUE: Imaging protocol: Computed tomography of the abdomen and pelvis with contrast. Radiation optimization: All CT scans at this facility use at least one of these dose optimization techniques: automated exposure control; mA and/or kV adjustment per patient size (includes targeted exams where dose is matched to clinical indication); or iterative reconstruction. Contrast material: OMNI 350; Contrast volume: 100 ml; Contrast route: INTRAVENOUS (IV); REPORTING DATA: Count of CT and Cardiac NM exams in prior 12 months: This patient has received [address] and 0 known cardiac nuclear medicine studies in the 12 months prior to the current study. COMPARISON: CT abdomen pelvis wo con [id number] 01/01/2023 10:08 AM RADIATION DOSE METRICS: Total DLP (mGy-cm): 776.98 FINDINGS: Liver: Normal. No mass. Gallbladder and bile ducts: Normal. No calcified stones. No ductal dilation. Pancreas: Normal. No ductal dilation. Spleen: Normal. No splenomegaly. Adrenal glands: Normal. No mass. Kidneys and ureters: Subcentimeter cyst noted in the right kidney. No hydronephrosis. Stomach and bowel: Interval resolution of the stool-filled colon on prior study. Fluid-filled loops of colon with mild mucosal hyperenhancement noted. No obstruction. Appendix: No evidence of appendicitis. Intraperitoneal space: Hernia mesh noted in the lower abdomen. No free air. No fluid collection. Vasculature: Unremarkable. No abdominal aortic aneurysm. Lymph nodes: Unremarkable. No enlarged lymph nodes. Urinary bladder: Unremarkable as visualized. Reproductive: Hysterectomy. Bones/joints: No acute fracture. Soft tissues: Spinal stimulator device noted in the left flank region. CT/CT abdomen pelvis w con* [id number] IMPRESSION: Interval resolution of the stool-filled colon seen on prior study. There is now mild mucosal hyperenhancement throughout the colon which may reflect colitis. Otherwise, no acute findings. COMMENTS: Consistent with the [employer]'s Incidental Findings Committee white paper (J Am Everardo Radiol 2018): Any incidental renal lesion less than 1 cm or classified as too small to characterize, or any incidental cystic renal lesion characterized as simple-appearing, is likely benign. No follow-up imaging is recommended for these lesions per consensus recommendations based on imaging criteria.
[2023-01-02] MEDS: sodium chloride 0.9% 1,000 ML 999 ML IV ×2 (18:38→21:29)
[2023-01-02] MEDS: fentaNYL 50 mcg/mL INJ 2mL IVP (18:39)
[2023-01-02] MEDS: ondansetron 2 mg/ML SDV 2 mL 4 MG IVP (18:41)
[2023-01-02 18:47] LABS: Basophils % 0.2 %; Hematocrit 57.5 % (36-47); Lymphocytes # 2.2 10^3/uL (0.8-4.8); Lymphocytes % 11.8 %; Mean Corpuscular HGB Conc 33.2 g/dL (30-55); Mean Corpuscular Hemoglobin 29.3 pg (27-33); Mean Corpuscular Volume 88.3 fl (85-98); Mean Platelet Volume 11.4 fL (7.4-10.4); Monocytes # 1.2 10^3/uL (0.2-0.9); Monocytes % 6.7 %; Neutrophils # 15.01 10^3/uL (1.8-7.7); Neutrophils % 80.9 %; Nucleated Red Blood Cells % 0 %; Platelet Count 407 10^3/cmm (157-399); Red Blood Count 6.51 10^6/uL (3.85-5.65); Red Cell Distribution Width 12.6 % (12.1-15.1); White Blood Count 18.55 10^3/uL (3.29-11.43)
[2023-01-02 18:52] LABS: Alanine Aminotransferase 25 U/L (0-33); Albumin Level 3.8 g/dL (3.5-5.2); Alkaline Phosphatase 78 U/L (35-105); Anion Gap 20.4 (5-19); Aspartate Amino Transferase 21 U/L (0-32); Blood Urea Nitrogen 48 mg/dL (6-20); Calcium 8.9 mg/dL (8.5-10.5); Carbon Dioxide 16 mmol/L (22-29); Chloride 98 mmol/L (98-107); Globulin 3.2 g/dL (1.3-4.6); Glomerular Filtration Rate 32.2 mL/min (90-130); Glucose 167 mg/dL (65-115); Lipase 16 U/L (13-60); Osmolality Calculated 288 mOsm/kg (285-295); Potassium 3.4 mmol/L (3.5-5.1); Sodium 131 mmol/L (136-145); Total Bilirubin 0.6 mg/dL (0.15-1.2)
[2023-01-02] MEDS: iohexol 350 mg/mL 500 mL Btl (per mL) IV (18:52)
--- NOTE | 2023-01-02 19:41 | ED_ITS ---
HPI - Abdominal Pain General: Chief Complaint: Abdominal Pain Stated Complaint: abd pain Time Seen by Provider: 01/02/23 17:59 History of Present Illness: Kala Mahajan is a 47-year-old female that presents to the emergency department with complaints of increased abdominal pain nausea vomiting since her visit yesterday. Patient evaluated by Dr. Elias yesterday. Significant constipation when she has not had in the past.? She has a obstipation/pseudoobstruction.? She not responded well to the enemas we have applied.? She only had small amount of stool.? She still has significant abdominal pain discomfort and nausea.? We will admit the patient to hospitalist service consult surgery.? She did have a colonoscopy she reports about 2 years ago that was unremarkable. Differential Diagnosis Likely abdominal pain, acute appendicitis, calculus of kidney, constipation, diverticulitis, gastroenteritis and small bowel obstruction Patient arrives today tachycardic, feeling worse with diffuse abdominal pain, and unable to tolerate fluids. Associated Symptoms: Reports bloating, GI cramping, nausea and vomiting; Denies chills, constipation, diarrhea, dysuria, fever(s), hematochezia and hematuria Review of Systems General: Reports: 10 or more systems reviewed and unremarkable except in HPI and below Const: Reports: change in appetite; Denies: fever(s), chills, change in weight, fatigue or malaise Eyes: Denies: change in vision, eye discomfort, eye discharge or eye redness ENMT: Denies: throat pain, enlarged tonsils, odynophagia, hoarseness, ear or mastoid pain, ear discharge, change in hearing, tinnitus, nasal discharge, nasal congestion, post nasal drip or sinus pain Card: Denies: chest pain, palpitations, irregular heart rhythm, edema, dyspnea on exertion, orthopnea or leg pain with exertion Resp: Denies: dyspnea, productive cough, non-productive cough, wheezing, stridor or chest congestion GI: Reports: abdominal pain, nausea, vomiting, bloating and GI cramping; Denies: dysphagia, diarrhea, constipation or hematochezia : Denies: flank pain, difficulty voiding, dysuria, urinary frequency, urinary urgency, urinary hesitancy, oliguria or hematuria Musc: Denies: neck pain, back pain, extremity pain, joint pain, joint swelling, joint redness, joint warmth or muscle weakness Skin/Breast: Denies: rash, pruritus, erythema, photosensitivity or new lesions Neuro: Denies: headache(s), numbness in extremities, weakness in extremities, sensory changes, lack of coordination, difficulty walking, frequent falls, dizziness, confusion, Slurred speech present, difficulty communicating thoughts, seizure-like activity or involuntary movements Endo: Denies: polyuria, polydipsia or tired all the time Gene/Lymph: Denies: easy bruising or easy bleeding PFSH ED PFSH: Medical History Bladder stone Breast cancer Cervical disc disorder with myelopathy of mid-cervical region Obesity (BMI 30.0-34.9) Saline breast implant in situ Spondylolisthesis of cervical region Surgical History H/O esophagogastroduodenoscopy (06/19/20) History of colonoscopy with polypectomy (06/19/20) History of hysterectomy History of incisional hernia repair History of left oophorectomy History of mastectomy With reconstruction S/P small bowel resection Status post insertion of spinal cord stimulator Family History Other Cancer Diabetes Social History Smoking and tobacco status: former smoker Second hand smoke exposure: No Smoking risk assessment/counseling performed?: No Alcohol intake: never Desire information about alcohol rehabilitation?: No Counseling given: No Substance/Drug Use: never Desire information about substance/drug rehabilitation?: No Counseling given: No Adopted: No Caregiver/support person: No Lives independently: Yes Household members: spouse Marital status: Number of children: 3 service: No Current occupational status: employed Current occupation: [employer] Do you think of yourself as: Straight/Heterosexual Current gender identity: Female Physical Exam Const: COMMON NORMALS: no acute distress, patient oriented x3 and alert GENERAL APPEARANCE: cooperative ORIENTATION/CONSCIOUSNESS: Yes awake, Yes oriented to person, Yes oriented to place and Yes oriented to time HENMT: COMMON NORMALS: normocephalic and atraumatic HEAD & SCALP: normocephalic and atraumatic FACE & SINUS: normal facial exam MOUTH: Normal oral and palatal mucosa present THROAT: posterior oropharynx normal Eye: COMMON NORMALS: Equal, round and reactive pupils present, EOMs intact bilaterally, conjunctivae normal and no scleral icterus GENERAL EYE: appearance normal, both eyes and all related structures ALIGNMENT: Yes alignment normal PERIORBITAL: periorbital findings normal CONJUNCTIVA: Yes conjunctivae normal PUPIL: Yes Equal, round and reactive pupils present Neck/C-Spine: COMMON NORMALS: full ROM GENERAL: Yes normal visual inspection Lymph: LYMPHATIC: no lymphadenopathy noted Chest: COMMONS NORMALS: normal inspection of the chest Breast/axilla inspection: Yes no chest deformity, asymmetry, normal contours, no nodules, masses, tenderness Resp: COMMON NORMALS: normal respiratory effort, No retractions, No use of accessory muscles and clear to auscultation bilaterally EFFORT & INSPECTION: Yes able to speak in complete sentences and Yes symmetric chest movement AUSCULTATION: clear to auscultation bilaterally Cardio: COMMON NORMALS: regular rate, regular rhythm and Peripheral pulses 2+ throughout RATE: regular rate RHYTHM: regular rhythm PERIPHERAL PULSES: Peripheral pulses 2+ throughout GI: COMMON NORMALS: Normal to inspection, nondistended, normoactive bowel sounds present, Soft to palpation, non-tender and No hepatosplenomegaly present INSPECTION: Yes normal to inspection AUSCULTATION: Yes normoactive bowel sounds PALPATION: Yes Soft to palpation and Yes No hepatosplenomegaly present RECTAL EXAM: deferred Extremity: COMMON NORMALS: normal to inspection GENERAL: Yes normal exam except as noted Neuro: COMMON NORMALS: patient oriented x3 SENSORIUM/ORIENTATION: Yes alert, Yes oriented to person, Yes oriented to place and Yes oriented to time CRANIAL NERVES: Yes CN normal except as noted Psych: COMMON NORMALS: mental status grossly normal, Normal thought process present, cooperative, activity/motor behavior normal, denies homicidal ideation and denies suicidal ideation THOUGHT PROCESS: Normal thought process present Skin: COMMON NORMALS: no rashes or lesions noted, no wounds and turgor normal GENERAL SKIN EXAM: no rashes or lesions noted and turgor normal Course Vital Signs: Vital signs: Vital Signs Temperature 97.8 F 01/02/23 17:11 Pulse Rate 87 01/02/23 19:30 Respiratory Rate 17 01/02/23 18:39 Blood Pressure 135/91 01/02/23 19:30 Pulse Oximetry 97 09/02/23 19:30 Oxygen Delivery Me thod Room Air 01/02/23 19:30 MDM - Abdominal Pain Medical Decision Making Patient was evaluated in the emergency department today due to increased abdominal pain following a disimpaction yesterday here in the emergency department. Patient was evaluated yesterday and found to be severely constipated. She underwent to enemas with disimpaction. She was doing well enough to discharge home. She developed increased abdominal pain today. She was unable to tolerate any p.o. fluids or foods Patient has a differential diagnosis that includes perforation, constipation, peritonitis, colitis. Patient underwent laboratory studies, radiographic evaluation, and treatment. She received a liter of normal saline and fentanyl for pain relief. Her symptoms significantly improved. She had labs that revealed leukocytosis, acute kidney injury, and electrolyte shift. CT of her abdomen revealed likely colitis. Lactic acid was 4.0. Spoke with the hospitalist who is agreeable to admission. We are starting Cipro and Flagyl. Giving her another liter bolus. While awaiting hospitalist evaluation, patient had a large liquid stool. Appears to be consistent with C. difficile Lab Data 01/02/23 18:05 01/02/23 18:05 Labs/Radiology: Radiology Impressions Abdomen/Pelvis CT 01/02/23 18:26 IMPRESSION: Interval resolution of the stool-filled colon seen on prior study. There is now mild mucosal hyperenhancement throughout the colon which may reflect colitis. Otherwise, no acute findings. COMMENTS: Consistent with the [employer]'s Incidental Findings Committee white paper (J Am Everardo Radiol 2018): Any incidental renal lesion less than 1 cm or classified as too small to characterize, or any incidental cystic renal lesion characterized as simple-appearing, is likely benign. No follow-up imaging is recommended for these lesions per consensus recommendations based on imaging criteria. Laboratory Results WBC 18.55 10^3/uL (3.29-11.43) H 01/02/23 18:05 RBC 6.51 10^6/uL (3.85-5.65) H 01/02/23 18:05 Hgb 19.10 g/dL (11.27-16.99) H 01/02/23 18:05 Hct 57.5 % (36-47) H 01/02/23 18:05 MCV 88.3 fl (85-98) 01/02/23 18:05 MCH 29.3 pg (27-33) 01/02/23 18:05 MCHC 33.2 g/dL (30-55) 01/02/23 18:05 RDW 12.6 % (12.1-15.1) 01/02/23 18:05 Plt Count 407 10^3/cmm (157-399) H 01/02/23 18:05 MPV 11.4 fL (7.4-10.4) H 01/02/23 18:05 Neut % (Auto) 80.9 % 01/02/23 18:05 Lymph % (Auto) 11.8 % 01/02/23 18:05 [place] % (Auto) 6.7 % 01/02/23 18:05 Eos % (Auto) 0.0 % 01/02/23 18:05 Baso % (Auto) 0.2 % 01/02/23 18:05 Neut # (Auto) 15.01 10^3/uL (1.8-7.7) H 01/02/23 18:05 Lymph # (Auto) 2.2 10^3/uL (0.8-4.8) 01/02/23 18:05 [place] # (Auto) 1.2 10^3/uL (0.2-0.9) H 01/02/23 18:05 Eos # (Auto) 0.0 10^3/uL (0.0-0.8) 01/02/23 18:05 Baso # (Auto) 0.0 10^3/uL (0.0-0.1) 01/02/23 18:05 Nucleated RBC % (auto) 0 % 01/02/23 18:05 Nucleated RBCs # 0.0 /100WBC 01/02/23 18:05 Sodium 131 mmol/L (136-145) L 01/02/23 18:05 Potassium 3.4 mmol/L (3.5-5.1) L 01/02/23 18:05 Chloride 98 mmol/L (98-107) 01/02/23 18:05 Carbon Dioxide 16 mmol/L (22-29) L 01/02/23 18:05 Anion Gap 20.4 (5-19) H 01/02/23 18:05 BUN 48 mg/dL (6-20) H 01/02/23 18:05 Creatinine 1.7 mg/dL (0.5-0.9) H 01/02/23 18:05 GFR Calculation 32.2 mL/min (90-130) L 01/02/23 18:05 Glucose 167 mg/dL (65-115) H 01/02/23 18:05 Calculated Osmolality 288 mOsm/kg (285-295) 01/02/23 18:05 Lactic Acid 4.0 mmol/L (0.5-2.2) H 01/02/23 18:05 Calcium 8.9 mg/dL (8.5-10.5) 01/02/23 18:05 Total Bilirubin 0.6 mg/dL (0.15-1.2) 01/02/23 18:05 AST 21 U/L (0-32) 01/02/23 18:05 ALT 25 U/L (0-33) 01/02/23 18:05 Alkaline Phosphatase 78 U/L (35-105) 01/02/23 18:05 Total Protein 7.0 g/dL (6.6-8.7) 01/02/23 18:05 Albumin 3.8 g/dL (3.5-5.2) 01/02/23 18:05 Globulin 3.2 g/dL (1.3-4.6) 01/02/23 18:05 Lipase 16 U/L (13-60) 01/02/23 18:05 Discharge Plan Discharge Patient Disposition: Admitted As Inpatient Admit Provider: Brennan Sweet Clinical Impression: Acute kidney injury, Colitis, Acidosis, Leukocytosis Condition: Stable Coding Level of Care Code ED Assistant Education Director for Angeli Feliciano
--- NOTE | 2023-01-02 21:18 | PC.NURSE ---
PER DR. ADAN, PATIENT IS OKAY TO RECEIVE ANTIBIOTICS WITHOUT OBTAINING BLOOD CULTURES.
[2023-01-02 21:24] LABS: Reflex Lactate Order REFLEX LACTIC ORDERD
[2023-01-02] MEDS: HYDROmorphone 1 mg/mL INJ 1 mL IVP (21:31)
[2023-01-02] MEDS: ciprofloxacin 400 MG/200 ML PREMIX 200 MG IV (21:33)
[2023-01-02] MEDS: metroNIDAZOLE IV 500 MG/100 ML PREMIX 100 MG IV (21:34)
--- NOTE | 2023-01-02 21:55 | PM.HP ---
Providers/Chief Complaint Admitting Physician: Brennan Sweet DO Primary Care Provider: ROSINA Parr Chief Complaint: abd pain History of Present Illness Kala Ngo is a 47 year old female without significant past medical history presents to the emergency room a day after discharge from the ED yesterday. Yesterday she complained of abdominal pain, nausea, vomiting and fever. At that time CAT scan showed severe constipation. The constipation was relieved after a couple of enemas. Patient returns today feeling worse with diffuse abdominal pain unable to tolerate fluids. In the emergency room she is tachycardic, has an elevated white blood cell count she is has a JESSICA and electrolyte abnormalities. She is found to have a metabolic acidosis from lactic acidosis. In the emergency room she has a large bout of diarrhea that is malodorous odorous for C. difficile. CT scan confirms colitis. She will be admitted to the hospital for IV antibiotics fluids and correction of metabolic abnormalities. Review of Systems Const: Reports: fever(s) and body aches; Denies: chills Eyes: Denies: change in vision ENMT: Denies: throat pain or nasal congestion Card: Denies: chest pain or palpitations Resp: Denies: dyspnea or productive cough GI: Reports: abdominal pain, nausea, vomiting, diarrhea and constipation : Denies: dysuria Musc: Denies: back pain or extremity pain Skin/Breast: Denies: rash or lesions Neuro: Denies: headache(s) or dizziness Psych: Denies: anxiety or depression Gene/Lymph: Denies: easy bruising or easy bleeding Medications/Allergies Home Medications Medication Instructions Recorded Confirmed Last Taken Type ondansetron HCl 4 mg tablet 4 mg PO Q8H PRN nausea and 02/03/22 01/01/23 Unknown Rx vomiting #90 tabs atogepant 60 mg tablet (Qulipta) 60 mg PO DAILY #90 tabs 05/11/22 01/01/23 Unknown Rx pen needle, diabetic 33 gauge x #100 ea 08/03/22 01/01/23 Unknown Rx pantoprazole 40 mg tablet,delayed 40 mg PO DAILY 90 days #90 tabs 11/09/22 01/01/23 12/31/22 Rx release (Protonix) tizanidine 4 mg tablet (Zanaflex) 4 mg PO BID PRN muscle spasticity 11/09/22 01/01/23 Unknown Rx #180 tabs liraglutide 0.6 mg/0.1 mL (18 mg/3 1.8 mg (0.3 mL) SUBCUT DAILY #9 mL 12/09/22 01/01/23 Unknown Rx mL) subcutaneous pen injector (Victoza 3-Michelet) naltrexone 8 mg-bupropion 90 mg 2 tab PO Q12H #120 tabs 12/15/22 01/01/23 12/31/22 Rx tablet,extended release (Contrave) multivitamin 1 tab PO DAILY 01/01/23 01/01/23 12/31/22 History polyethylene glycol 3350 17 17 g PO DAILY #850 grams 01/01/23 Unknown Rx gram/dose oral powder (Miralax) Allergies Allergy/AdvReac Type Severity Reaction Status Date / Time Sulfa (Sulfonamide Allergy Severe fever, Verified 01/01/23 09:42 Antibiotics) vomiting,rash, headache PFSH Acute PFSH: Medical History Bladder stone Breast cancer Cervical disc disorder with myelopathy of mid-cervical region Obesity (BMI 30.0-34.9) Saline breast implant in situ Spondylolisthesis of cervical region Surgical History H/O esophagogastroduodenoscopy (06/19/20) History of colonoscopy with polypectomy (06/19/20) History of hysterectomy History of incisional hernia repair History of left oophorectomy History of mastectomy With reconstruction S/P small bowel resection Status post insertion of spinal cord stimulator Family History Other Cancer Diabetes Social History Smoking and tobacco status: former smoker Second hand smoke exposure: No Smoking risk assessment/counseling performed?: No Alcohol intake: never Desire information about alcohol rehabilitation?: No Counseling given: No Substance/Drug Use: never Desire information about substance/drug rehabilitation?: No Counseling given: No Adopted: No Caregiver/support person: No Lives independently: Yes Household members: spouse Marital status: Number of children: 3 service: No Current occupational status: employed Current occupation: [employer] Do you think of yourself as: Straight/Heterosexual Current gender identity: Female Vitals/I&O/Wt Last Vital Signs Temp 97.8 F 01/02/23 17:11 Pulse 108 H 01/02/23 21:00 Resp 17 01/02/23 21:31 BP 129/80 01/02/23 21:00 Pulse Ox 96 01/02/23 21:00 O2 Del Method Room Air 01/02/23 21:00 Weight last 48 hrs Weight 81.647 kg Physical Exam Narrative: 47-year-old white female is toxic in appearance. She is diaphoretic and clammy. Neurologic: Alert and oriented x3 nonfocal to exam. HEENT head is normocephalic atraumatic pupils equal round right reactive to light and combination extraocular muscles are intact there is no scleral icterus mucous membranes are moist and pink without lesions or exudates neck is supple no JVD carotid bruits or lymphadenopathy Chest: Rises symmetrically with inspiration Cardiac: Tachycardic normal S1-S2 without murmurs clicks gallops or rubs Respiratory: Clear to auscultation without wheezes rales or rhonchi Abdomen: Guarding present no rebound. Slightly distended overall. Hypoactive bowel sounds Extremities no clubbing cyanosis or edema Back no significant kyphosis or scoliosis no CVA tenderness Lymph: No supraclavicular axillary or inguinal lymph nodes appreciated Skin is moist clammy pale Psych mood and affect appropriate for the severity of illness. Data 01/02/23 18:05 01/02/23 18:05 CT Abd/Pel: Radiologist's impression: IMPRESSION: Interval resolution of the stool-filled colon seen on prior study. There is now mild mucosal hyperenhancement throughout the colon which may reflect colitis. Otherwise, no acute findings. A&P Assessment and plan (1) Colitis due to Clostridium difficile: Highly suspect C. difficile as culprit. Patient's loose stool had the odor of classic C. difficile. Initiate Flagyl and Cipro for generalized colitis. The Flagyl for certain would treat C. difficile. Patient requires fluid resuscitation due to the lactic acidosis. The plan was to give 2 L of normal saline in the ER will confirm that this was completed and then 150 cc an hour. (2) Acute kidney injury: Fluid resuscitation for treatment of JESSICA I expect resolution. (3) Acidosis: Fluid resuscitation for now we will consider bicarbonate drip. (4) Leukocytosis: (5) Electrolyte abnormality: Replace electrolytes. Check magnesium level Plan Hold weight loss medications. Attestations Medical Necessity Statement*: Patient is anticipated to cross 2 midnights for the care of her severe C. difficile colitis. Coding Level of Care Code Acute Code for [facility] Diagnoses Colitis due to Clostridium difficile A04.72 Acute kidney injury N17.9 Acidosis E87.20 Leukocytosis D72.829 Electrolyte abnormality E87.8
[2023-01-02 22:27] LABS: Lactic Acid level (Lactate) 3.9 mmol/L (0.5-2.2)
[2023-01-02 22:32] LABS: Magnesium 2.3 mg/dL (1.7-2.3)
[2023-01-02] MEDS: enoxaparin 40 mg/0.4 mL Syringe SUBCUT (22:37)
[2023-01-02] MEDS: lidocaine 1% 5 ML in potassium chloride premix 100 ML 26.25 ML IV (22:37)
[2023-01-02] MEDS: sodium chloride 0.9% 1,000 ML 150 ML IV (22:38)
--- NOTE | 2023-01-02 23:23 | PC.NURSE ---
Med rec verified via verbally with patient.
[2023-01-03] VITALS (10 sets, daily range): BP systolic 102–122; BP diastolic 57–75; PULSE 75–91; RESP 16–18; TEMP 36.4–37.7; O2SAT 95–100
[2023-01-03] MEDS: ondansetron 2 mg/ML SDV 2 mL 8 MG IVP ×3 (04:55→18:26)
[2023-01-03] MEDS: sodium chloride 0.9% 1,000 ML 150 ML IV ×4 (04:55→23:31)
[2023-01-03 05:44] LABS: Basophils % 0.2 %; Hematocrit 42.4 % (36-47); Lymphocytes # 3.1 10^3/uL (0.8-4.8); Lymphocytes % 16.4 %; Mean Corpuscular HGB Conc 33.7 g/dL (30-55); Mean Corpuscular Hemoglobin 29.1 pg (27-33); Mean Corpuscular Volume 86.4 fl (85-98); Mean Platelet Volume 11.4 fL (7.4-10.4); Monocytes # 1.5 10^3/uL (0.2-0.9); Monocytes % 7.9 %; Neutrophils # 14.12 10^3/uL (1.8-7.7); Neutrophils % 75.1 %; Nucleated Red Blood Cells % 0 %; Platelet Count 290 10^3/cmm (157-399); Red Blood Count 4.91 10^6/uL (3.85-5.65); Red Cell Distribution Width 12.6 % (12.1-15.1); White Blood Count 18.81 10^3/uL (3.29-11.43)
[2023-01-03 06:00] LABS: Blood Urea Nitrogen 25 mg/dL (6-20); Calcium 7.8 mg/dL (8.5-10.5); Carbon Dioxide 22 mmol/L (22-29); Chloride 106 mmol/L (98-107); Glomerular Filtration Rate 89.7 mL/min (90-130); Glucose 129 mg/dL (65-115); Magnesium 1.7 mg/dL (1.7-2.3); Osmolality Calculated 286 mOsm/kg (285-295); Sodium 135 mmol/L (136-145)
--- OUTSIDE RECORDS SUMMARY | 2023-01-03 06:46 | XMS_ITS | Patient Health Record ---
Author Name Unknown Organization [facility] Address [address] [id number] Care Team Providers Care Behavioral Instructor Name Role Phone Joselito Conner Primary Care Provider [phone] REASON FOR REFERRAL No Information MEDICATIONS Medication SIG (Take, Route, Frequency, Duration) Notes Start Date End Date Status tizanidine 4 MG Oral Tablet tizanidine 4 MG Oral Tablet 12/09/2016 Active Paroxetine Hydrochloride 20 MG Oral Tablet Paroxetine Hydrochloride 20 MG Oral Tablet 12/09/2016 Active gabapentin 300 MG Oral Capsule gabapentin 300 MG Oral Capsule 12/09/2016 Active Omeprazole 20 MG Enteric Coated Capsule Omeprazole 20 MG Enteric Coated Capsule 12/09/2016 Active SOCIAL HISTORY Sex Assigned At : Social History Observation Description Sex Assigned At Unknown PLAN OF TREATMENT No Information
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
[2023-01-03] MEDS: HYDROmorphone 1 mg/mL INJ 1 mL IVP ×2 (09:05→21:52)
[2023-01-03] MEDS: ciprofloxacin 400 MG/200 ML PREMIX 200 MG IV ×2 (09:44→21:31)
[2023-01-03] MEDS: metroNIDAZOLE IV 500 MG/100 ML PREMIX 100 MG IV ×2 (09:44→18:14)
[2023-01-03] MEDS: enoxaparin 40 mg/0.4 mL Syringe SUBCUT (21:30)
--- NOTE | 2023-01-03 21:37 | P.PN_ITS ---
Subjective Subjective: Treatment visit so far has not had recurrent diarrhea yet. Prior stool was watery. Was having some vomiting previously, not anymore so far. Vitals/I&O/Wt Last Vital Signs Temp 98.3 F 01/03/23 20:00 Pulse 88 01/03/23 20:00 Resp 17 01/03/23 20:00 BP 122/75 01/03/23 20:00 Pulse Ox 98 01/03/23 20:00 O2 Del Method Room Air 01/03/23 16:00 01/03/23 01/03/23 01/03/23 06:59 14:59 22:59 Intake Total 2347.5 / 3347.5 1280 / 1280 1100 / 2380 Balance 2347.5 / 3347.5 1280 / 1280 1100 / 2380 Weight last 48 hrs Weight 81.647 kg Physical Exam Const: COMMON NORMALS: patient oriented x3 and alert GENERAL APPEARANCE: cooperative ORIENTATION/CONSCIOUSNESS: Yes awake HENMT: COMMON NORMALS: oropharynx normal Neck/C-Spine: COMMON NORMALS: no JVD Resp: COMMON NORMALS: normal respiratory effort and clear to auscultation bilaterally AUSCULTATION: clear to auscultation bilaterally Cardio: COMMON NORMALS: no JVD, regular rhythm, S1 normal heart sound present, S2 normal heart sound present and No murmurs present (Cardio) RHYTHM: regular rhythm HEART SOUNDS: S1 normal heart sound present and S2 normal heart sound present GI: COMMON NORMALS: Normal to inspection, nondistended, normoactive bowel sounds present, Soft to palpation and non-tender PALPATION: Yes Soft to palpation Extremity: COMMON NORMALS: no joint enlargement and no pedal edema Neuro: COMMON NORMALS: patient oriented x3 and moves all extremities SENSOR IUM/ORIENTATION: Yes alert Skin: COMMON NORMALS: no rashes or lesions noted GENERAL SKIN EXAM: no rashes or lesions noted Data 01/03/23 04:50 01/03/23 04:50 Micro: Microbiology 01/03/23 11:27 C.difficile Toxin B Gene (PCR) - Final Stool A&P Assessment and plan (1) Colitis: C. difficile noted negative. Requested stool bacterial culture, ova and parasites. Continue Cipro, Flagyl. Continue IV hydration. Still nauseated, so far no additional vomiting. Clear liquid diet trial. At risk of electrolyte abnormalities, reviewed sodium, potassium, reviewed magnesium, 1.7. Replace hypomagnesemia. Recheck magnesium. Recheck chemistry. (2) Acute kidney injury: Reviewed renal function, noted with improvement, BUN 25, creatinine 0.7. Resolving JESSICA. Follow-up chemistry. (3) Acidosis: Reviewed acid-base, bicarb, and anion gap noted resolving acidosis. (4) Leukocytosis: Reviewed CBC, persistent leukocytosis, predominantly neutrophilic. Continue treatment of colitis. (5) Electrolyte abnormality: Replace as above. Follow-up. Plan Hold weight loss medications. Attestations Medical Necessity Statement*: Continue admission for assessment management of colitis, electrolyte abnormalities. Diagnoses Colitis K52.9 Acute kidney injury N17.9 Acidosis E87.20 Leukocytosis D72.829 Electrolyte abnormality E87.8
[2023-01-03] MEDS: magnesium sulfate premix 2 GM/50 ML PIGGYBACK IV (23:28)
[2023-01-04] VITALS: BP 108/64; PULSE 78; RESP 16; TEMP 36.3; O2SAT 93
[2023-01-04] MEDS: metroNIDAZOLE IV 500 MG/100 ML PREMIX 100 MG IV ×2 (01:06→08:19)
[2023-01-04 04:00] VITALS: BP 112/63; PULSE 80; RESP 16; TEMP 36.4; O2SAT 92
[2023-01-04 05:01] LABS: Basophils % 0.2 %; Eosinophils % 0.1 %; Hematocrit 34.5 % (36-47); Lymphocytes # 3.2 10^3/uL (0.8-4.8); Lymphocytes % 22.8 %; Mean Corpuscular HGB Conc 33.3 g/dL (30-55); Mean Corpuscular Hemoglobin 29.9 pg (27-33); Mean Corpuscular Volume 89.8 fl (85-98); Monocytes % 6.8 %; Neutrophils # 9.84 10^3/uL (1.8-7.7); Neutrophils % 69.7 %; Nucleated Red Blood Cells % 0 %; Platelet Count 197 10^3/cmm (157-399); Red Blood Count 3.84 10^6/uL (3.85-5.65); Red Cell Distribution Width 12.6 % (12.1-15.1); White Blood Count 14.11 10^3/uL (3.29-11.43)
[2023-01-04 05:17] LABS: Magnesium 2.1 mg/dL (1.7-2.3)
[2023-01-04 05:19] LABS: Anion Gap 10.8 (5-19); Blood Urea Nitrogen 6 mg/dL (6-20); Calcium 7.3 mg/dL (8.5-10.5); Carbon Dioxide 25 mmol/L (22-29); Chloride 108 mmol/L (98-107); Glomerular Filtration Rate 132.2 mL/min (90-130); Glucose 106 mg/dL (65-115); Osmolality Calculated 288 mOsm/kg (285-295); Potassium 3.8 mmol/L (3.5-5.1); Sodium 140 mmol/L (136-145)
[2023-01-04 06:00] VITALS: PULSE 80
[2023-01-04 07:43] VITALS: BP 110/65; PULSE 86; RESP 19; TEMP 36.4; O2SAT 92
[2023-01-04] MEDS: ciprofloxacin 400 MG/200 ML PREMIX 200 MG IV (08:19)
--- NOTE | 2023-01-04 11:17 | PM.DCS ---
Discharge Providers Date of Admission: 01/02/23 22:13 Date of Discharge: January 04, 2023 Attending Provider at Admission: Brennan Sweet DO Attending Provider at Discharge: Tien Tim Primary Care Provider: ROSINA Parr Diagnoses at Discharge Discharge Diagnosis (1) Colitis: Status: Acute (2) Acute kidney injury: Status: Acute (3) Acidosis: Status: Acute (4) Leukocytosis: Status: Acute (5) Electrolyte abnormality: Status: Acute Reason for Visit Reason for Visit: abd pain Hospital Course Hospital Course 47-year-old female who present to the hospital chief complaint recurrent nausea vomiting abdominal pain, patient drinks a lot of green tea in a day, her C. difficile panel was negative, her nausea vomiting improved, JESSICA improved with IV fluid hydration, patient endorsing feeling much better, able to tolerate diet, CT abdomen pelvis was consistent with colitis, excessive stool burden relieved. Patient remained afebrile, white count is 14,000 at the time of discharge, creatinine 0.5. Patient will be able to go home with stable hemodynamics she will get 3-day course of ciprofloxacin and Flagyl at home, she got IV antibiotic during hospitalization. Physical Exam Narrative: Wake and alert GCS 15 Abdomen soft S1, S2 Appropriate mood and affect Discharge Data Studies Completed and Pending Completed Studies During Hospitalization Category Date Time Status CT abdomen pelvis w con* [id number] Stat Cat Scan 01/02/23 18:26 Completed Pending at discharge Category Date Time Status Basic Metabolic Panel AM LABS Lab 01/05/23 04:00 Ordered Complete Blood Count w/Auto AM LABS Lab 01/05/23 04:00 Ordered Stool Culture, Bacterial [Enteric Bacterial Panel by Lab 01/03/23 11:27 Received PCR] Routine stool Ova and Parasite [Enteric Parasite Panel by PCR] Lab 01/03/23 11:27 Received Routine Radiology Impressions Abdomen/Pelvis CT 01/02/23 18:26 IMPRESSION: Interval resolution of the stool-filled colon seen on prior study. There is now mild mucosal hyperenhancement throughout the colon which may reflect colitis. Otherwise, no acute findings. COMMENTS: Consistent with the [employer]'s Incidental Findings Committee white paper (J Am Everardo Radiol 2018): Any incidental renal lesion less than 1 cm or classified as too small to characterize, or any incidental cystic renal lesion characterized as simple-appearing, is likely benign. No follow-up imaging is recommended for these lesions per consensus recommendations based on imaging criteria. Laboratory Results WBC 14.11 10^3/uL (3.29-11.43) H 01/04/23 04:25 RBC 3.84 10^6/uL (3.85-5.65) L 01/04/23 04:25 Hgb 11.50 g/dL (11.27-16.99) 01/04/23 04:25 Hct 34.5 % (36-47) L 01/04/23 04:25 MCV 89.8 fl (85-98) 01/04/23 04:25 MCH 29.9 pg (27-33) 01/04/23 04:25 MCHC 33.3 g/dL (30-55) 01/04/23 04:25 RDW 12.6 % (12.1-15.1) 01/04/23 04:25 Plt Count 197 10^3/cmm (157-399) D 01/04/23 04:25 MPV 11.0 fL (7.4-10.4) H 01/04/23 04:25 Neut % (Auto) 69.7 % 01/04/23 04:25 Lymph % (Auto) 22.8 % 01/04/23 04:25 [place] % (Auto) 6.8 % 01/04/23 04:25 Eos % (Auto) 0.1 % 01/04/23 04:25 Baso % (Auto) 0.2 % 01/04/23 04:25 Neut # (Auto) 9.84 10^3/uL (1.8-7.7) H 01/04/23 04:25 Lymph # (Auto) 3.2 10^3/uL (0.8-4.8) 01/04/23 04:25 [place] # (Auto) 1.0 10^3/uL (0.2-0.9) H 01/04/23 04:25 Eos # (Auto) 0.0 10^3/uL (0.0-0.8) 01/04/23 04:25 Baso # (Auto) 0.0 10^3/uL (0.0-0.1) 01/04/23 04:25 Nucleated RBC % (auto) 0 % 01/04/23 04:25 Nucleated RBCs # 0.0 /100WBC 01/04/23 04:25 Sodium 140 mmol/L (136-145) 01/04/23 04:25 Potassium 3.8 mmol/L (3.5-5.1) 01/04/23 04:25 Chloride 108 mmol/L (98-107) H 01/04/23 04:25 Carbon Dioxide 25 mmol/L (22-29) 01/04/23 04:25 Anion Gap 10.8 (5-19) 01/04/23 04:25 BUN 6 mg/dL (6-20) 01/04/23 04:25 Creatinine 0.5 mg/dL (0.5-0.9) 01/04/23 04:25 GFR Calculation 132.2 mL/min (90-130) H 01/04/23 04:25 Glucose 106 mg/dL (65-115) 01/04/23 04:25 Calculated Osmolality 288 mOsm/kg (285-295) 01/04/23 04:25 Lactic Acid 4.0 mmol/L (0.5-2.2) H 01/02/23 18:05 Lactic Acid (Sepsis) 3.9 mmol/L (0.5-2.2) H 01/02/23 21:42 Calcium 7.3 mg/dL (8.5-10.5) L 01/04/23 04:25 Magnesium 2.1 mg/dL (1.7-2.3) 01/04/23 04:25 Total Bilirubin 0.6 mg/dL (0.15-1.2) 01/02/23 18:05 AST 21 U/L (0-32) 01/02/23 18:05 ALT 25 U/L (0-33) 01/02/23 18:05 Alkaline Phosphatase 78 U/L (35-105) 01/02/23 18:05 Total Protein 7.0 g/dL (6.6-8.7) 01/02/23 18:05 Albumin 3.8 g/dL (3.5-5.2) 01/02/23 18:05 Globulin 3.2 g/dL (1.3-4.6) 01/02/23 18:05 Lipase 16 U/L (13-60) 01/02/23 18:05 Vitals Last Vital Signs Temp 97.5 F L 01/04/23 07:43 Pulse 86 01/04/23 07:43 Resp 19 H 01/04/23 07:43 BP 110/65 01/04/23 07:43 Pulse Ox 92 01/04/23 07:43 O2 Del Method Room Air 01/04/23 07:43 Discharge Plan Discharge Patient Disposition: Home Condition: Stable Prescriptions: New ciprofloxacin HCl 500 mg tablet 500 mg PO Q12H Qty: 6 0RF loperamide [Imodium A-D] 2 mg capsule 2 mg PO Q6H PRN (Reason: loose stool) Qty: 6 0RF metronidazole 500 mg tablet 500 mg PO Q8H 3 Days Qty: 9 0RF Continued Qulipta 60 mg tablet 60 mg PO DAILY Qty: 90 0RF (DME) pen needle, diabetic 33 gauge x 5/32 needle See Rx Instructions .ROUTE .MEDSUPPLY Qty: 100 5RF Rx Instructions: 1 time day Victoza 3-Michelet 0.6 mg/0.1 mL (18 mg/3 mL) pen injector 1.8 mg SUBCUT DAILY Qty: 9 0RF ondansetron HCl 4 mg tablet 4 mg PO Q8H PRN (Reason: nausea and vomiting) Qty: 90 0RF pantoprazole [Protonix] 40 mg tablet,delayed release (DR/EC) 40 mg PO DAILY 90 Days Qty: 90 0RF tizanidine [Zanaflex] 4 mg tablet 4 mg PO BID PRN (Reason: muscle spasticity) Qty: 180 0RF Contrave 8-90 mg tablet extended release 2 tab PO Q12H Qty: 120 0RF polyethylene glycol 3350 [Miralax] 17 gram/dose powder 17 g PO DAILY Qty: 850 0RF Held multivitamin [Multi-Vitamin] Tablet 1 tab PO DAILY Hold Instructions: Resume on 01/07/23. Discharge Orders: Discharge Order (Routine); Ordered 01/04/23 Ordered By: Lico Lundberg Referrals: Kameron Gallagher FNP-C [Primary Care Provider] - 7-10 days (We have notified your physician's clinic of the need for a follow-up appointment to be scheduled. If you have not heard from them within the next 2 business days, please call them directly. You may also reach out to our assignment manager at [phone] and she can assist you.) Patient Instructions: Opioid Safety Activity Restrictions/Additional Instructions: For colitis you will get treatment of ciprofloxacin and Flagyl 3-day course you can take Imodium if you experience multiple episodes of diarrhea in a day Discharge Attestations Time Spent in Discharge Care*: greater than 30 min Quality Metrics Clinical Quality Measures [ No reported AMI, CVA or VTE this stay] Coding Level of Care Code Acute Code for [facility] Diagnoses Colitis K52.9 Acute kidney injury N17.9 Acidosis E87.20 Leukocytosis D72.829 Electrolyte abnormality E87.8
[2023-01-04 11:56] VITALS: BP 123/68; PULSE 76; RESP 20; TEMP 36.6; O2SAT 96
--- NOTE | 2023-01-04 13:32 | PC.NURSE ---
Lab positive for shigatoxin, Toño called and stated pt not to take immodium or ATB that were ordered at discharge. Pt states she understands.
[2023-01-04 14:07] VITALS: BP 123/68; PULSE 76; RESP 20; TEMP 36.6; O2SAT 96
== END 2023-01-04 14:00 | disposition home or self-care (01) | DRG 372 ==
LOC: ER 20:50 → MEDSURG 21:17
PROVIDERS: Emergency Medicine; Admitting Provider Internal Medicine; Emergency Provider Nurse Practitioner; PCP Nurse Practitioner; Visit Provider Internal Medicine
DX: A03.0 Shigellosis due to Shigella dysenteriae (principal); E87.20 Acidosis, unspecified; N17.9 Acute kidney failure, unspecified; K59.00 Constipation, unspecified; Z85.3 Personal history of malignant neoplasm of breast; E66.9 Obesity, unspecified; Z68.31 Body mass index [BMI] 31.0-31.9, adult; Z98.82 Breast implant status; M43.12 Spondylolisthesis, cervical region; Z90.10 Acquired absence of unspecified breast and nipple; Z90.49 Acquired absence of other specified parts of digestive tract; Z96.82 Presence of neurostimulator; Z87.891 Personal history of nicotine dependence
CPT/HCPCS: 36415; 74177; 80048; 80053; 83605; 83690; 83735; 85025; 87493; 87506; 96365; 96367; 96372; 96375; 99285; J0744; J1170; J1650; J2405; J3010; J3475; J3480; J3490; J7030; Q9967

== ENCOUNTER → 2023-01-19 14:19 | Outpatient (BNVA) | payer OTHER, SELFPAY | PROVIDERS: PCP Nurse Practitioner; Visit Provider Nurse Practitioner | DX: K21.9 Gastro-esophageal reflux disease without esophagitis (principal) | CPT/HCPCS: 80053; 85025 ==

== ENCOUNTER 2023-05-28 02:22 | Emergency (ER) | payer OTHER, SELFPAY ==
[2023-05-28 02:24] VITALS: BP 122/65; PULSE 78; RESP 16; TEMP 36.4; BMI 30.4
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
--- NOTE | 2023-05-28 02:44 | ECG_ITS ---
[facility] Test Date: 2023-05-28 Pat Name: Kala Ngo Department: Room: Gender: Female Product Lister: : 1975 Requested By: Diony Talley Order Number: [id number] Deborah MD: Dustin Cook M.D. Measurements Intervals [place] Rate: 75 P: 64 NM: 177 QRS: 38 QRSD: 93 T: 69 QT: 383 QTc: 429 Interpretive Statements SINUS RHYTHM LOW QRS VOLTAGE IN PRECORDIAL LEADS [QRS DEFLECTION < 1.0 mV IN CHEST LEADS] POSSIBLE RIGHT VENTRICULAR CONDUCTION DELAY [RSR (QR) IN V1/V2] Compared to ECG 01/22/2017 12:46:06 Low QRS voltage now present Electronically Signed On 05-28-2023 6:52:49 [facility] by Dustin Cook M.D. [id number]
[2023-05-28 02:51] LABS: Basophils % 0.4 %; Eosinophils # 0.1 10^3/uL (0.0-0.8); Eosinophils % 0.8 %; Hematocrit 40.7 % (36-47); Lymphocytes # 2.5 10^3/uL (0.8-4.8); Lymphocytes % 30.4 %; Mean Corpuscular HGB Conc 34.2 g/dL (30-55); Mean Corpuscular Hemoglobin 29.6 pg (27-33); Mean Corpuscular Volume 86.6 fl (85-98); Mean Platelet Volume 10.4 fL (7.4-10.4); Monocytes # 0.5 10^3/uL (0.2-0.9); Monocytes % 6.5 %; Neutrophils # 5.13 10^3/uL (1.8-7.7); Neutrophils % 61.8 %; Nucleated Red Blood Cells % 0 %; Platelet Count 282 10^3/cmm (157-399); Red Cell Distribution Width 12.4 % (12.1-15.1); White Blood Count 8.31 10^3/uL (3.29-11.43)
--- NOTE | 2023-05-28 03:08 | ED_ITS ---
HPI - Fall 2 General: Chief Complaint: Fall Stated Complaint: Dizzy\Fall Hit head Time Seen by Provider: 05/28/23 02:24 History of Present Illness: Patient presents to the ER after falling and hitting her face on the wall. Patient got up out of her chair and started walking towards the bathroom and she fell and hit her face on the wall. Patient does not remember falling. said patient was unconscious for about 10 seconds. Patient have a bloody nose upon following, she bled about 10 to 15 drops per the . Then a at the patient up and she went limp and started to fall again and they guided her to the ground. They took her blood pressure and it was 88/65. Patient says she currently is feels nauseated and weak. Her nose is hurting. Patient does not use any blood thinners at this time. Review of Systems 2 General: Reports: 10 or more systems reviewed and unremarkable except in HPI and below PFSH ED 2 PFSH: Medical History Electrolyte abnormality Leukocytosis Acidosis Colitis Acute kidney injury Obesity (BMI 30.0-34.9) Saline breast implant in situ Breast cancer Spondylolisthesis of cervical region Cervical disc disorder with myelopathy of mid-cervical region Bladder stone Surgical History Status post insertion of spinal cord stimulator History of colonoscopy with polypectomy (06/19/20) H/O esophagogastroduodenoscopy (06/19/20) History of left oophorectomy History of incisional hernia repair History of hysterectomy History of mastectomy With reconstruction S/P small bowel resection Family History Other Cancer Diabetes Social History Smoking and tobacco/nicotine status: former use of tobacco/nicotine Second hand smoke exposure: No Alcohol intake: never Substance/Drug Use: never Adopted: No Caregiver/support person: No Lives independently: Yes Household members: spouse Marital status: Number of children: 3 service: No Current occupational status: employed Current occupation: [employer] Do you think of yourself as: Straight/Heterosexual Current gender identity: Female Physical Exam 2 Const: COMMON NORMALS: no acute distress, average body habitus, patient oriented x3, no limitations, healthy appearing, alert and well nourished HENMT: COMMON NORMALS: normocephalic, atraumatic, hearing grossly normal bilaterally, external ears normal, EAC's normal, Normal external nose present, moist oral mucous membranes and oropharynx normal HEAD & SCALP: normocephalic and atraumatic NOSE: Normal external nose present EXTERNAL EAR: Yes external ears normal EXTERNAL AUDITORY CANAL: EAC's normal Eye: COMMON NORMALS: Equal, round and reactive pupils present, EOMs intact bilaterally, conjunctivae normal and no scleral icterus CONJUNCTIVA: Yes conjunctivae normal PUPIL: Yes Equal, round and reactive pupils present Neck/C-Spine: COMMON NORMALS: full ROM, no lymphadenopathy, supple, no meningeal signs, no JVD and Thyroid normal THYROID: Thyroid normal Chest: COMMONS NORMALS: normal inspection of the chest and normal palpation of entire chest wall Resp: COMMON NORMALS: normal respiratory effort, No retractions, No use of accessory muscles and clear to auscultation bilaterally AUSCULTATION: clear to auscultation bilaterally Cardio: COMMON NORMALS: no JVD, regular rate, regular rhythm, S1 normal heart sound present, S2 normal heart sound present, No gallops present (Cardio), No clicks present (Cardio), No murmurs present (Cardio) and No rub (Cardio) R ATE: regular rate RHYTHM: regular rhythm HEART SOUNDS: S1 normal heart sound present and S2 normal heart sound present GI: COMMON NORMALS: Normal to inspection, nondistended, normoactive bowel sounds present, Soft to palpation, non-tender and No hepatosplenomegaly present PALPATION: Yes Soft to palpation and Yes No hepatosplenomegaly present Neuro: COMMON NORMALS: patient oriented x3 SENSORIUM/ORIENTATION: Yes alert MENINGEAL SIGNS: Yes no meningeal signs Course 2 Vital Signs: Vital signs: Vital Signs Temperature 97.5 F L 05/28/23 02:24 Pulse Rate 66 05/28/23 04:04 Respiratory Rate 16 05/28/23 02:24 Blood Pressure 109/74 05/28/23 04:04 Pulse Oximetry 98 05/28/23 04:04 Oxygen Delivery Me thod Room Air 05/28/23 04:04 MDM - Fall Medical Decision Making Patient was evaluated and lab work was obtained that included CBC CMP urinalys as well as head CT all of which was essentially negative. It is thought that the patient has some orthostatic hypotension and this caused her to pass out and fall into the wall. This was discussed with the patient and her family and they all agree and understand. Patient will be discharged from the ER and should follow-up with her family practice physician in the next 7 to 10 days for further evaluation and testing. Differential Diagnosis Unlikely syncope, dislocation of shoulder region, fracture of wrist, compression fracture, concussion with loss of consciousness or concussion without loss of consciousness Medical Records I reviewed the patient's medical records. Lab Data I reviewed the patient's lab results. 05/28/23 02:45 05/28/23 02:[address] 05/28/23 02:44 IMPRESSION: No evidence of acute injury. Laboratory Results WBC 8.31 10^3/uL (3.29-11.43) 05/28/23 02:45 RBC 4.70 10^6/uL (3.85-5.65) 05/28/23 02:45 Hgb 13.90 g/dL (11.27-16.99) 05/28/23 02:45 Hct 40.7 % (36-47) 05/28/23 02:45 MCV 86.6 fl (85-98) 05/28/23 02:45 MCH 29.6 pg (27-33) 05/28/23 02:45 MCHC 34.2 g/dL (30-55) 05/28/23 02:45 RDW 12.4 % (12.1-15.1) 05/28/23 02:45 Plt Count 282 10^3/cmm (157-399) 05/28/23 02:45 MPV 10.4 fL (7.4-10.4) 05/28/23 02:45 Neut % (Auto) 61.8 % 05/28/23 02:45 Lymph % (Auto) 30.4 % 05/28/23 02:45 [place] % (Auto) 6.5 % 05/28/23 02:45 Eos % (Auto) 0.8 % 05/28/23 02:45 Baso % (Auto) 0.4 % 05/28/23 02:45 Neut # (Auto) 5.13 10^3/uL (1.8-7.7) 05/28/23 02:45 Lymph # (Auto) 2.5 10^3/uL (0.8-4.8) 05/28/23 02:45 [place] # (Auto) 0.5 10^3/uL (0.2-0.9) 05/28/23 02:45 Eos # (Auto) 0.1 10^3/uL (0.0-0.8) 05/28/23 02:45 Baso # (Auto) 0.0 10^3/uL (0.0-0.1) 05/28/23 02:45 Nucleated RBC % (auto) 0 % 05/28/23 02:45 Nucleated RBCs # 0.0 /100WBC 05/28/23 02:45 Sodium 141 mmol/L (136-145) 05/28/23 02:45 Potassium 3.6 mmol/L (3.5-5.1) 05/28/23 02:45 Chloride 102 mmol/L (98-107) 05/28/23 02:45 Carbon Dioxide 26 mmol/L (22-29) 05/28/23 02:45 Anion Gap 16.6 (5-19) 05/28/23 02:45 BUN 17 mg/dL (6-20) 05/28/23 02:45 Creatinine 0.9 mg/dL (0.5-0.9) 05/28/23 02:45 GFR Calculation 66.8 mL/min (90-130) L 05/28/23 02:45 Glucose 98 mg/dL (65-115) 05/28/23 02:45 Calculated Osmolality 294 mOsm/kg (285-295) 05/28/23 02:45 Calcium 10.1 mg/dL (8.5-10.5) 05/28/23 02:45 Total Bilirubin 0.2 mg/dL (0.15-1.2) 05/28/23 02:45 AST 17 U/L (0-32) 05/28/23 02:45 ALT 16 U/L (0-33) 05/28/23 02:45 Alkaline Phosphatase 72 U/L (35-105) 05/28/23 02:45 Total Protein 7.4 g/dL (6.6-8.7) 05/28/23 02:45 Albumin 4.5 g/dL (3.5-5.2) 05/28/23 02:45 Globulin 2.9 g/dL (1.3-4.6) 05/28/23 02:45 Urine Color Yellow (Yellow) 05/28/23 04:00 Urine Appearance Hazy (CLEAR) A 05/28/23 04:00 Urine pH 6 (5-7) 05/28/23 04:00 Ur Specific [place] 1.020 (1.005-1.030) 05/28/23 04:00 Urine Protein Neg (Negative) 05/28/23 04:00 Urine Glucose (UA) Norm (Normal) 05/28/23 04:00 Urine Ketones Negative (Negative) 05/28/23 04:00 Urine Blood Neg (Negative) 05/28/23 04:00 Urine Nitrate Negative (Negative) 05/28/23 04:00 Urine Bilirubin Neg (Negative) 05/28/23 04:00 Urine Urobilinogen Neg mg/dL (Negative) 05/28/23 04:00 Ur Leukocyte Esterase Negative (Negative) 05/28/23 04:00 Urine RBC None /hpf (0-2) 05/28/23 04:00 Urine WBC None /hpf (0-5) 05/28/23 04:00 Ur Squamous Epith Cells 15-25 /hpf (0-5) H 05/28/23 04:00 Amorphous Sediment Not Reportable 05/28/23 04:00 Urine Bacteria 1+ /hpf (NONE) H 05/28/23 04:00 Urine Mucus 3+ /hpf 05/28/23 04:00 All radiology interpretation(s) finalized by discharge EKG Data EKG 1: I personally reviewed and interpreted this EKG as follows: EKG interpretation date: 05/28/23 EKG interpretation time: 02:57 Prior EKG tracings: not available for review Interpretation: EKG showed ventricular rate 75 bpm, AL interval 177, QRS duration 93, QTc of 412, sinus rhythm, Discharge Plan Discharge Patient Disposition: Home Clinical Impression: Orthostatic syncope, Fall Condition: Stable Prescriptions: No Action (DME) pen needle, diabetic 33 gauge x 5/32 needle See Rx Instructions .ROUTE .MEDSUPPLY Qty: 100 5RF Rx Instructions: 1 time day bupropion HCl [Wellbutrin XL] 300 mg tablet extended release 24 hr 300 mg PO QAM Qty: 90 1RF Victoza 3-Michelet 0.6 mg/0.1 mL (18 mg/3 mL) pen injector 1.8 mg SUBCUT DAILY Qty: 9 0RF naltrexone 50 mg tablet 50 mg PO DAILY Qty: 90 1RF pantoprazole [Protonix] 40 mg tablet,delayed release (DR/EC) 40 mg PO DAILY 90 Days Qty: 90 1RF polyethylene glycol 3350 [Miralax] 17 gram/dose powder 17 g PO DAILY Qty: 850 1RF tizanidine [Zanaflex] 4 mg tablet 4 mg PO BID PRN (Reason: muscle spasticity) Qty: 180 1RF Ubrelvy 50 mg tablet 50 mg PO .COMPLEX Qty: 20 0RF Rx Instructions: 50 mg orally onset of migraine headache may repeat 2 hours; Do not exceed 2 in 24 hours. ondansetron HCl 4 mg tablet 4 mg PO Q8H PRN (Reason: nausea and vomiting) Qty: 90 0RF multivitamin Tablet 1 tab PO DAILY Hold Instructions: Resume on 01/07/23. Discharge Orders: Discharge ED (Routine); Ordered 05/28/23 Ordered By: Diony Talley Referrals: Kameron Gallagher, DI[employer]ATING MACHINE [employer]YPIST[facility] [Primary Care Provider] - 1 week Patient Instructions: Syncope (ED), Hypotension (ED) Activity Restrictions/Additional Instructions: Your evaluation and lab work including blood, urine, EKG and CT did not reveal any acute causes of your syncope. Is thought that is this is your blood pressure decreasing when you stand up or change positions too quickly. Please stand up slowly and pause for approximately 5 seconds before you take off or change direction. This will help if it is your blood pressure. Otherwise follow-up with your family practice physician within the next 7 to 10 days for further evaluation and treatment. Coding Level of Care Code ED Aba Tutor for Angeli Feliciano
[2023-05-28 03:12] LABS: Alanine Aminotransferase 16 U/L (0-33); Albumin Level 4.5 g/dL (3.5-5.2); Alkaline Phosphatase 72 U/L (35-105); Anion Gap 16.6 (5-19); Aspartate Amino Transferase 17 U/L (0-32); Blood Urea Nitrogen 17 mg/dL (6-20); Calcium 10.1 mg/dL (8.5-10.5); Carbon Dioxide 26 mmol/L (22-29); Chloride 102 mmol/L (98-107); Globulin 2.9 g/dL (1.3-4.6); Glomerular Filtration Rate 66.8 mL/min (90-130); Glucose 98 mg/dL (65-115); Osmolality Calculated 294 mOsm/kg (285-295); Potassium 3.6 mmol/L (3.5-5.1); Sodium 141 mmol/L (136-145); Total Bilirubin 0.2 mg/dL (0.15-1.2); Total Protein 7.4 g/dL (6.6-8.7)
[2023-05-28] MEDS: sodium chloride 0.9% 1,000 ML 999 ML IV (03:16)
[2023-05-28] MEDS: ondansetron 2 mg/ML SDV 2 mL 4 MG IVP (03:17)
[2023-05-28 04:04] VITALS: BP 109/74; PULSE 66; O2SAT 98
[2023-05-28 04:16] LABS: Add Urine Culture? No; Add Urine Microscopic? YES; Bacteria Urine 1+ /hpf; Bilirubin Urine Neg (Negative); Blood Urine Neg (Negative); Glucose Urine UA Norm (Normal); Ketones Urine Negative (Negative); Leukocyte Esterase Urine Negative (Negative); Mucus Urine 3+ /hpf; Nitrate Urine Negative (Negative); Protein Urine Neg (Negative); Squamous Epithelial Cell Urine 15-25 /hpf (0-5); Urine Appearance Hazy (CLEAR); Urine Color Yellow (Yellow); Urobilinogen Urine Neg (Negative); pH Urine 6 (5-7)
== END 2023-05-28 04:56 | disposition home or self-care (01) ==
PROVIDERS: Emergency Provider Emergency Medicine; PCP Nurse Practitioner
DX: I95.1 Orthostatic hypotension (principal); Z87.891 Personal history of nicotine dependence; Z85.3 Personal history of malignant neoplasm of breast
CPT/HCPCS: 70450; 80053; 81001; 85025; 93005; 96361; 96374; 99285; J2405; J7030

== ENCOUNTER 2023-06-09 09:00 | Outpatient (CLI) | payer OTHER, SELFPAY ==
--- NOTE | 2023-06-09 09:15 | USCV_ITS ---
Kala Ngo Age: 48 Gender: F : 1975 Exam Date: 06/09/2023 09:07 Ordering Phys: Kameron Gallagher Technologist: Melina Johnston [place] [facility] [place] ORTHOSTATIC HYPOTENSION 2 SYNCOPE EPISODES BP: 110 / 70 HR: 72 Rhythm: Sinus Technical Quality: Adequate MEASUREMENTS (Male / Female) Normal Values 2D ECHO LV Diastolic Diameter PLAX 4.1 cm 4.2 - 5.9 / 3.9 - 5.3 cm LV Systolic Diameter PLAX 2.8 cm IVS Diastolic Thickness 0.8 cm 0.6 - 1.0 / 0.6 - 0.9 cm IVS Systolic Thickness 1.2 cm LVPW Diastolic Thickness 1.2 cm 0.6 - 1.0 / 0.6 - 0.9 cm LVPW Systolic Thickness 1.5 cm LVOT Diameter 2.0 cm LV Ejection Fraction 2D Teich 61.4 % LV Ejection Fraction MOD 2C 51.0 % LV Ejection Fraction 2C AL 53.4 % LA Diameter 2.2 cm LA Width 2.0 cm LA Height 3.1 cm RA Width 2.8 cm RA Height 2.9 cm Aorta at Sinotubular Diameter 3.1 cm IVC Diameter 1.8 cm M-MODE Aortic Annulus Diameter 3.4 cm LA Ao Ratio MM 0.8 MV E Point Septal Separation 0.3 cm DOPPLER AV Peak Velocity 137.0 cm/s LVOT Peak Velocity 89.0 cm/s AV Area Cont Eq vti 2.2 cm squared AV Area Cont Eq pk 2.1 cm squared MV Area PHT 4.1 cm squared Mitral E to A Ratio 0.9 MV E' Velocity 37.5 cm/s Mitral E to MV E' Ratio 6.3 Mitral E to LV E' Lateral Ratio 5.3 Mitral E to LV E' Septal Ratio 8.1 TR Peak Velocity 214.1 cm/s TR Peak Gradient 18.3 mmHg TR Mean Velocity 159.2 cm/s TR Mean Gradient 11.5 mmHg TR Velocity Time Integral 54.4 cm TV Peak E Velocity 53.0 cm/s Right Atrial Pressure 3.0 mmHg Pulmonary Artery Systolic Pressu 21.3 mmHg RV Acceleration Time 0.1 s RV Ejection Time 0.3 s RV AcT/ET 0.4 FINDINGS Left Ventricle Left ventricle is normal in size. Left ventricle likely has false tendon. LV systolic function normal with EF 55 to 60%. No regional wall motion abnormalities are seen. Grade 1 diastolic dysfunction. Right Ventricle Normal in size and function Right Atrium Normal in size Left Atrium Normal in size Mitral Valve Structurally normal mitral valve. Mild mitral regurgitation. Aortic Valve Structurally normal aortic valve. No significant stenosis or regurgitation seen. Tricuspid Valve Trace tricuspid regurgitation. Pulmonary artery systolic pressure is normal. Pulmonic Valve Not well visualized Pericardium Normal Aorta Normal in size IVC Appears to be normal CONCLUSIONS Left ventricle is false tendon noted. LV systolic function is normal with EF of 55 to 60% Mild mitral regurgitation Trace tricuspid regurgitation No comparison studies are available Fausto Stone MD (Electronically Signed) Final Date: 23 June 2023 11:32 S
== END 2023-06-09 09:01 | disposition home or self-care (01) ==
LOC: RAD 09:01
PROVIDERS: PCP Nurse Practitioner; Visit Provider Nurse Practitioner
DX: I95.1 Orthostatic hypotension (principal); I34.0 Nonrheumatic mitral (valve) insufficiency
CPT/HCPCS: 93306

== ENCOUNTER 2023-07-21 12:33 | Outpatient (CLI) | payer OTHER, SELFPAY ==
--- NOTE | 2023-07-21 | ECG_ITS ---
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 Interpretive Statements NAME OF STUDY: TREADMILL STRESS TEST INDICATION: SYNCOPE, PROCEDURE: At the baseline, the patient's blood pressure was 94/62 with a heart rate of 93. The baseline electrocardiogram showed normal sinus rhythm with normal ST-Ts.. The patient exercised for 6 minutes and 46 seconds on a standard Nicola protocol. Patient attained a maximum heart rate of 159 beats per minute(92% of the maximum predicted heart rate) with a blood pressure at the peak exercise of 124/71 mm Hg. The EKG at the peak exercise revealed no significant changes. Patient did not have any chest pain or any significant cardiac arrhythmias with the exercise During the recovery phase, there were no new changes. Blood pressure at the end of the recovery phase was 117/62 mm Hg with a heart rate of 103 per minute. CONCLUSION: 1. No significant EKG changes with the treadmill exercise 2. No exercise-induced chest pain or cardiac arrhythmia 3. Fair exercise tolerance, attained a maximum of 10.2 METs Electronically Signed On 07-25-2023 20:05:16 CDT by Dank Cutler M.D. [email or web address]
[2023-07-21 12:38] VITALS: BMI 30.9
[2023-07-21 13:15] VITALS: BP 119/63; PULSE 98
== END 2023-07-21 12:34 | disposition home or self-care (01) ==
PROVIDERS: PCP Nurse Practitioner; Visit Provider Internal Medicine Cardiovascular Disease
DX: R55 Syncope and collapse (principal)
CPT/HCPCS: 93017

== ENCOUNTER → 2023-09-01 11:59 | Outpatient (BNVA) | payer OTHER, SELFPAY | PROVIDERS: PCP Nurse Practitioner; Visit Provider Nurse Practitioner | DX: E66.9 Obesity, unspecified (principal); K21.9 Gastro-esophageal reflux disease without esophagitis; K59.01 Slow transit constipation; G43.711 Chronic migraine without aura, intractable, with status migrainosus | CPT/HCPCS: 80053 ==

== ENCOUNTER 2024-06-29 10:09 | Outpatient (CLI) | payer OTHER, SELFPAY ==
--- NOTE | 2024-06-29 | ECG_ITS ---
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 Interpretive Statements EXERCISE MIBI EXERCISE DATA: The patient was exercised by Nicola protocol. Baseline heart rate was 98 beats per minute. Baseline blood pressure was 138/81millimeters of mercury. Maximal predicted heart rate was 171 beats per minute. Maximum heart rate achieved was 174, which was 101% of the maximum predicted heart rate. Maximum blood pressure was 138/81 millimeters of mercury. Total exercise time was 8 minutes and 43 seconds. Maximum METs achieved was 10.2. The reason for ending the test was completion of the protocol. The patient complained of shortness of breath during the stress test, which then resolved at the end of the test. ELECTROCARDIOGRAM: BASELINE: Showed sinus rhythm, normal axis, no significant ST-T changes at the baseline noted. [] EXERCISE: At the peak exercise level, [] No significant ST-T changes suggestive of ischemia noted. [] RECOVERY: During the recovery period, heart rate dropped appropriately. No significant ST-T changes in the recovery suggestive of ischemia noted. [] CONCLUSION: 1. Exercise capacity is good 2. Heart rate response was appropriate 3. Blood pressure response was appropriate 4. Symptoms not suggestive of ischemia. 5. Electrocardiogram portion of the stress test was not suggestive of ischemia. 6. Nuclear scan will be documented separately. Electronically Signed On 07-19-2024 11:39:41 CDT by Fausto Stone M.D. [email or web address] [id number]
[2024-06-29 10:31] VITALS: BMI 30.9
--- NOTE | 2024-06-29 10:42 | NMCV_ITS ---
NM jessica perf SPECT r/s* [id number] Kala Ngo Age: 49 Gender: F : 1975 Exam Date: 06/29/2024 10:42 Ordering Phys: Dank Cutler MD ([email or web address]) Technologist: GRETTA Novak Exam Location: [facility] Indications: cp STRESS TEST Please see separate stress test report in [facility] for full findings IMAGE PROTOCOL Rest/Stress 1 Radiopharmaceutical Dose (mCi) Administration Site Administered by Rest: Tc-99m 10.4 IV GRETAT Novak Sestamibi Stress:Tc-99m 33 IV GRETTA Novak Sestamibi Rest: 29-Jun-2024 60 Discovery 630 Stress: 29-Jun-2024 30 Discovery 630 Radiopharmaceutical was injected at 100% maximum heart rate. . Images obtained in supine and prone position. SPECT RESULTS Technical Quality: Good Raw Data Analysis: Normal Image Corrections: No attenuation or motion correction applied Summed Stress Score: 0 Summed Rest Score: 0 Summed Difference Score: 0 PERFUSION FINDINGS SPECT images demonstrate homogeneous tracer distribution throughout the myocardium. FUNCTIONAL RESULTS (calculated via Gated SPECT) Stress Image LV EF (%): 76 Stress EDV (mL):74 TID: 0.78 Stress ESV (mL):18 FUNCTIONAL FINDINGS: There is normal left ventricular systolic function. IMPRESSIONS 1. Normal myocardial perfusion imaging with no evidence of ischemia 2. LV systolic function is normal Fausto Stone MD (Electronically Signed) Final Date: 03 July 2024 22:06 S
[2024-06-29 12:25] VITALS: BP 107/52; PULSE 98
== END 2024-06-29 10:10 | disposition home or self-care (01) ==
LOC: CDL 10:13
PROVIDERS: PCP Nurse Practitioner; Visit Provider Internal Medicine Cardiovascular Disease
DX: R55 Syncope and collapse (principal)
CPT/HCPCS: 36415; 78452; 93017; 96374; A9500